=== PATIENT | male | born 1965 | race Caucasian/White ===

== ENCOUNTER → 2024-12-24 11:09 | Outpatient (REF) | payer BC, SELFPAY ==
[2024-12-24 12:04] LABS: Hematocrit 34.8 % (39.0-52.0); Hemoglobin 11.8 g/dL (13.0-18.0); Mean Corp Hgb Conc. 33.9 g/dL (33.0-37.0); Mean Corpuscular Volume 87.2 fL (80.0-94.0); Nucleated Red Blood Cells % 0 % (-); Platelet Count 437 10^3/uL (130-400); Red Cell Dist. Width 12.8 % (11.5-14.5)
[2024-12-24 12:15] LABS: Blood Urea Nitrogen 47 mg/dl (9-20); Calcium 9.9 mg/dl (8.4-10.2); Carbon Dioxide 28 mmol/L (22-30); Chloride 99 mmol/L (98-107); Glucose 133 mg/dl (70-99); Potassium 4.1 mmol/L (3.5-5.1); Sodium 134 mmol/L (135-145); eGFR > 60.00
== END ==
LOC: REG 11:09
PROVIDERS: ATTENDING PHYSICIAN Internal Medicine
DX: I25.10 Atherosclerotic heart disease of native coronary artery without angina pectoris (principal); K92.2 Gastrointestinal hemorrhage, unspecified
CPT/HCPCS: 36415; 80048; 85025

== ENCOUNTER → 2025-01-04 07:14 | Outpatient (REF) | payer BC, SELFPAY ==
--- NOTE | 2025-01-04 08:23 | CARDSERVLU ---
Echocardiogram with Lumason completed after protocol screening completed. Allergies verified.
Patent IV site: __22P new start first attempt___
IV site flushed with 0.9% NaCl pre and post administration.
Diluted bolus method utilized to enhance visualization of ventricular mejias.
Total volume given: __3.0__ mL
site dcd at completion of test.
Patient tolerated all procedures well without complications.
== END ==
LOC: RCS 07:14
PROVIDERS: ATTENDING PHYSICIAN Internal Medicine Cardiovascular Disease; FAMILY PHYSICIAN Internal Medicine
DX: I25.10 Atherosclerotic heart disease of native coronary artery without angina pectoris (principal); I25.5 Ischemic cardiomyopathy
CPT/HCPCS: 93306; Q9950

== ENCOUNTER → 2025-01-06 11:08 | Outpatient (REF) | payer BC, SELFPAY | LOC: HWRAD 11:08 | PROVIDERS: ATTENDING PHYSICIAN Thoracic Surgery (Cardiothoracic Vascular Surgery); FAMILY PHYSICIAN Internal Medicine | DX: Z01.810 Encounter for preprocedural cardiovascular examination (principal); I25.10 Atherosclerotic heart disease of native coronary artery without angina pectoris | CPT/HCPCS: 71250 ==

== ENCOUNTER 2025-01-08 20:30 | Emergency (ER) | payer BC, SELFPAY ==
[2025-01-08 20:34] VITALS: BP 127/93
--- NOTE | 2025-01-08 20:40 | ED.GENMED ---
History of Present Illness
General
Chief Complaint: Fever
Source: patient
Time Seen by Provider: 01/08/25 20:40
History of Present Illness
History of Present Illness:
59-year-old male presents emergency room complaining of fever, chills, rigors, right sided flank pain. Patient also has noticed that he is having some urgency to urinate and cloudy urine. Patient was recently hospitalized in [place] after having
a 'heart attack'. He had a stent placed. He was discharged and has since followed up here with Dr. Carr. He is scheduled for CABG on January 19. I found his preoperative history and physical in the medical record. This describes the patient's
issues at the [facility]. He had a inferior wall HI complicated by cardiac arrest, CPR. In addition to having a right coronary artery lesion that was stented he had LAD and circumflex disease. There was a plan for him to have CABG but
his preop DELGADO showed profound left ventricular dysfunction. The plan therefore was to hold off on surgery to allow for some cardiac recovery. He was discharged in is now receiving care here at [place]. Patient states he did have a Mitchell
catheter while he was hospitalized at [facility].
Past History
Past History
ED Past Medical History: Other (Kidney stones)
ED Past Surgical History: None
Social History
Tobacco: Non-smoker
Alcohol: Occasional
Drug: None
Personal:
Living: with family
Phy Exam
Physical Exam
Physical Exam:
General: Awake, Alert, Oriented X3. No acute distress.
Vitals: unremarkable
Head: Atraumatic
Eyes: Pupils equal, EOMI
Throat: Airway intact, no exudates
Neck: Trachea midline
Lungs: Clear and equal b/l
Heart: Regular rate, no murmurs
Abd: Soft, Nontender, No pulsatile mass
Back: No CVA tenderness to percussion
Neuro: Nonfocal
Skin: Warm, dry, no rash
Extremities: pulses equal b/l, no edema
Course
Orders/Labs/Results
Orders:
Orders
01/08/25 20:55
Basic Metabolic Panel Urgent
COVID-19 Antigen Urgent
Source: Nasal Swab
Complete Blood Count/With Diff Urgent
Influenza A+B Rapid Molecular Urgent
SOL Source: Nasal Swab
Specimen Description:
01/08/25 21:04
Acetaminophen [Tylenol] 650 mg PO NOW STA
01/08/25 22:18
Urinalysis Reflex To Culture Urgent
Date Specimen was Collected: 01/08/25
Time Specimen was Collected: 21:36
Urine Microscopic Reflex Cult Urgent
01/08/25 22:34
CR Chest - 2 Views Urgent
Comment:
Reason For Exam: fever, back pain
01/08/25 22:52
Blood Culture Q30M
SOL Source: Blood/Venous
Specimen Description:
Blood Culture Q30M
SOL Source: Blood/Venous
Specimen Description:
Abnormal Lab Results
01/08/25 01/08/25
20:55 22:18
WBC 3.6 L 10^3/uL
(4.8-10.8)
RBC 3.65 L 10^6/uL
(4.70-6.10)
Hgb 9.7 L g/dL
(13.0-18.0)
Hct 31.2 L %
(39.0-52.0)
MCH 26.6 L pg
(27.0-31.0)
MCHC 31.1 L g/dL
(33.0-37.0)
Absolute Lymphs (auto) 0.3 L 10^3/uL
(1.2-3.4)
Neutrophils % 86.1 H %
(42.2-75.2)
Lymphocytes % 7.6 L %
(20.5-51.1)
Sodium 133 L mmol/L
(135-145)
Glucose 103 H mg/dl
(70-99)
Urine Albumin (Reflex) 1+ A
(Neg - Trace)
01/08/25 20:55
01/08/25 20:55
Vital Signs
Initial and Last Documented VS:
Initial Vital Signs
Temp Pulse Resp BP Pulse Ox
100.1 F 126 20 127/93 97
01/08/25 20:34 01/08/25 20:34 01/08/25 20:34 01/08/25 20:34 01/08/25 20:34
Last Documented Vital Signs
Temp Pulse Resp BP Pulse Ox
100.1 F 104 16 107/67 98
01/08/25 22:50 01/08/25 22:49 01/08/25 22:49 01/08/25 22:00 01/08/25 22:49
MDM/Problems Addressed
Differential Diagnosis Includes:
UTI, pyelonephritis, pneumonia, viral illness such as COVID or flu
MDM/Problems Addressed:
Patient presents with fever. Right fevers and chills at home. Vital signs are normal here other than the fever. Temperature broke with Tylenol. Urinalysis is not consistent with a urinary tract infection. COVID and flu are negative.
Chemistries are normal essentially. White count is 3.6. Blood cultures and urine culture sent. Patient feels much better at this point. Will discharge and contact him if his cultures grow anything. Patient encouraged to return if he feels he is
getting worse.
*Pulse Oximetry
SaO2: 97
Oxygen Mode of Delivery: Room air
Patient hypoxic: no
*Critical Care Note
Total Time (30-74mins, 75-104mins- exclusive of procedures): Not Applicable
ED Attending Note
-
Portions of this chart may have been created with voice recognition software.� Occasional wrong word or��sound alike� substitutions may have occurred due to the inherent limitations of voice recognition software.
Discharge Plan
Departure
Patient Disposition: Home (Routine Discharge)
Date of Disposition: 01/08/25
Time of Disposition: 22:57
Patient with high blood pressure during this ER visit?: No
Condition: Good
Discharge Problem:
Fever
Instructions: Fever, Adult (DC)
Prescriptions:
No Action
atorvastatin 80 mg Tablet
80 mg PO HS
spironolactone 25 mg Tablet
25 mg PO DAILY
pantoprazole 40 mg Tablet,Delayed Release (Dr/Ec)
40 mg PO BID
aspirin 81 mg Tablet
81 mg PO DAILY
ticagrelor 90 mg Tablet
90 mg PO Q12H
Referrals:
Mathew Basilio MD [Family Provider, Internal Medicine]
Activity Restrictions/Additional Instructions:
We will contact you if any of your cultures turn positive. Return if you feel like you are getting worse. He can take Tylenol every 6 hours for fever.
Interventions
Interventions:
*Risk Screen - Suicide Last Done: 01/08/25 21:02
*General Assessment Last Done: 01/08/25 20:34
*Neglect/Abuse Screening Last Done: 01/08/25 21:02
*ED- Fall Risk Assessment Last Done: 01/08/25 21:02
*ED COVID-19 Vaccine History Last Done: 01/08/25 21:02
*ED Influenza Vaccine History Last Done: 01/08/25 21:02
Discharge Date and Time
Print Language: TRISTANIAN
[2025-01-08 21:02] VITALS: BMI 28.8
[2025-01-08 21:04] VITALS: BP 111/71
[2025-01-08 21:12] LABS: Hematocrit 31.2 % (39.0-52.0); Hemoglobin 9.7 g/dL (13.0-18.0); Mean Corp Hgb Conc. 31.1 g/dL (33.0-37.0); Mean Corpuscular Volume 85.5 fL (80.0-94.0); Nucleated Red Blood Cells % 0 % (-); Platelet Count 181 10^3/uL (130-400); Red Cell Dist. Width 13.5 % (11.5-14.5)
[2025-01-08] MEDS: TYLENOL 650 MG PO (21:14)
[2025-01-08 21:25] LABS: COVID-19 Antigen Negative (Negative)
[2025-01-08 21:34] LABS: Blood Urea Nitrogen 15 mg/dl (9-20); Calcium 8.8 mg/dl (8.4-10.2); Carbon Dioxide 23 mmol/L (22-30); Chloride 101 mmol/L (98-107); Estimated Creatinine Clearance 73 ml/min; Glucose 103 mg/dl (70-99); Potassium 3.8 mmol/L (3.5-5.1); Sodium 133 mmol/L (135-145); eGFR > 60.00
[2025-01-08 22:00] VITALS: BP 107/67
[2025-01-08 22:24] LABS: Urine Character Clear (Clear)
[2025-01-08 22:35] LABS: Urine Red Blood Cell 0-2 /HPF (0-2); Urine Squamous Cell None seen /LPF (Few); Urine White Cell None Seen /HPF (0-5)
== END 2025-01-08 23:41 | disposition home or self-care (01) ==
LOC: EMR 20:30
PROVIDERS: EMERGENCY PHYSICIAN Emergency Medicine; FAMILY PHYSICIAN Internal Medicine
DX: R50.9 Fever, unspecified (principal); R10.A1 Flank pain, right side; R39.15 Urgency of urination; I25.2 Old myocardial infarction; Z86.74 Personal history of sudden cardiac arrest; Z87.442 Personal history of urinary calculi; I25.10 Atherosclerotic heart disease of native coronary artery without angina pectoris; Z95.5 Presence of coronary angioplasty implant and graft; Z11.52 Encounter for screening for COVID-19
CPT/HCPCS: 99284; 71046; 80048; 81003; 81015; 85025; 87040; 87502; 87811

== ENCOUNTER 2025-01-12 06:21 | Day surgery (SDC) | payer BC, SELFPAY ==
[2025-01-12] VITALS (14 sets, daily range): BP systolic 90–125; BP diastolic 58–78; BMI 28.5
[2025-01-12] MEDS: LOW STRENGTH ASPIRIN 324 MG PO (07:06)
[2025-01-12] MEDS: NSS 240 ML IV (07:09)
[2025-01-12] MEDS: NSS 1000 IV (09:33)
[2025-01-12] MEDS: BRILINTA 90 MG PO (09:40)
--- NOTE | 2025-01-12 16:11 | ITS.CL.CATH ---
[employer] - Catheterization
Cardiac Catheterization
Procedure Report:
LEFT AND RIGHT HEART CATHETERIZATION
Date of Procedure: January 12, 2025
Referring: Gino Childs
PROCEDURES:
1. Left heart catheterization, coronary angiogram.
2. Moderate sedation.
3. Right heart catheterization.
INDICATION: Pre-CABG
ACCESS: Right radial artery, 6Fr. sheath, under US guidance.
Right common femoral vein, 6Fr sheath, under US guidance using micropuncture kit.
HEMODYNAMICS : (mmHg)
RA (m) : 9
RV (s/d,m) : 35/5, 13
PA (s/d, m) : 33/14, 23
PCWP (m) : 17 with v waves to 25mmHG
PA saturation: 62.3% on room air
AO saturation: 96.5% on room air
RA saturation: 56.6% on room air
Cardiac Output : 5.87 L/min
Cardiac Index : 3.09 L/min/m-2
Systemic vascular resistance: 1104 dsc^(-5)
Pulmonary vascular resistance: 1.02 salazar unit
AO (s/d) : 107/64
LVEDP : 15
No significant gradient across the aortic valve to suggest aortic stenosis.
CORONARY FINDINGS
Dominance: Right
Left Main Trunk (LMT): Medium caliber vessel that gives rise to the left major descending artery and a left circumflex artery. There is significant ventricularization and pressure dampening upon selective engagement with a 6 Urdu JL 4 diagnostic
catheter. Ostial left main has a 60 to 70% stenosis.
Left Anterior Descending Artery (LAD): Medium caliber vessel that gives off 1 major diagonal branches as it courses along the anterior inter-ventricular groove before wrapping around the cardiac apex. Proximal LAD has a long area of 70 to 80%
stenosis at the level of the takeoff of a diagonal branch. D1 is a medium caliber vessel that has 50 to 60% proximal stenosis and eccentric 60 to 70% mid stenosis
Left Circumflex Artery (LCx): Large caliber vessel that gives off 1 major obtuse marginal (OM) branches as it courses along the atrio-ventricular (AV) groove. Proximal portion of the lower branch of OM1 which is a larger branch has a 75% stenosis.
Right Coronary Artery (RCA): RCA has an anomalous takeoff from the left coronary cusp which is very high in the anterior and was very challenging to selectively engage. After feeling with a diagnostic JR4, 3 DRBita, MPA, the closest we got is with a 6
Urdu AL-1 diagnostic catheter but still not able to selectively engage despite multiple attempts and trying multiple angles. On nonselective shots there appears to be eccentric 50 to 60% ostial to proximal stenosis. Distal RCA stent is widely
patent. RPL system has small caliber vessels with ostial 70% stenosis. RPDA is medium caliber and has 50 to 60% ostial to proximal stenosis
SEDATION: 67 minutes of procedural sedation was utilized. IV Midazolam and IV Fentanyl were administered. An independent hospital medical biller was present to assist with and help manage the patient's level of consciousness and physiologic status.
RADIATION SUMMARY: Fluoro Time (min): 31.5, Dose (mGy): 813.9, DAP (Gy.cm2) : 54.55
Closure Device: There were no immediate intra-procedural complications. The sheath was pulled in the labor relations manager and a vascular-band applied to the right wrist for radial artery hemostasis using the patent hemostasis technique.
CONCLUSIONS
1. Significant multivessel coronary artery disease.
2. LVEDP 15 mmHg
3. Mildly elevated right and left-sided filling pressures with normal cardiac output.
RECOMMENDATIONS
1. Wean radial band per protocol. Monitor right hand perfusion and for bleeding from the radial site following removal of the vascular-band following trans-radial access.
2. Continue aggressive medical therapy and risk factor modification for secondary CAD prevention.
3. Hydrate with normal saline to mitigate the risk of contrast-induced acute kidney injury.
4. Proceed with planned coronary artery bypass grafting with CT surgery.
Copy to: Mallory Rojo and Jose Carr MD
Miladys Silva MD, FAC, [facility]
== END 2025-01-12 12:46 | disposition home or self-care (01) ==
LOC: CATH 06:21
PROVIDERS: ATTENDING PHYSICIAN Internal Medicine Interventional Cardiology; FAMILY PHYSICIAN Internal Medicine; OTHER PHYSICIAN Internal Medicine Cardiovascular Disease
DX: I25.10 Atherosclerotic heart disease of native coronary artery without angina pectoris (principal); I34.0 Nonrheumatic mitral (valve) insufficiency; I25.5 Ischemic cardiomyopathy; I25.2 Old myocardial infarction; Z79.82 Long term (current) use of aspirin; Z79.899 Other long term (current) drug therapy; Z95.5 Presence of coronary angioplasty implant and graft; Z72.0 Tobacco use
CPT/HCPCS: 99152; 99153; 93460; C1769; C1894; Q9967

== ENCOUNTER 2025-01-14 07:10 | Day surgery (SDC) | payer BC, SELFPAY ==
[2025-01-14 08:08] VITALS: BMI 29.1
== END 2025-01-14 09:59 | disposition home or self-care (01) ==
LOC: CATH 07:10
PROVIDERS: ATTENDING PHYSICIAN Internal Medicine Cardiovascular Disease; FAMILY PHYSICIAN Internal Medicine; OTHER PHYSICIAN Internal Medicine Cardiovascular Disease
DX: I08.0 Rheumatic disorders of both mitral and aortic valves (principal); I25.2 Old myocardial infarction; Z79.82 Long term (current) use of aspirin; Z79.02 Long term (current) use of antithrombotics/antiplatelets; Z79.899 Other long term (current) drug therapy; I25.5 Ischemic cardiomyopathy; Z95.5 Presence of coronary angioplasty implant and graft
CPT/HCPCS: 93312; 93320; 93325

== ENCOUNTER 2025-01-19 05:17 | Inpatient (IN) | payer BC, SELFPAY ==
[2025-01-10 12:59] VITALS: BMI 28.2
[2025-01-10 13:41] LABS: Hematocrit 33.4 % (39.0-52.0); Hemoglobin 10.8 g/dL (13.0-18.0); Mean Corp Hgb Conc. 32.3 g/dL (33.0-37.0); Mean Corpuscular Volume 83.5 fL (80.0-94.0); Nucleated Red Blood Cells % 0 % (-); Platelet Count 183 10^3/uL (130-400); Red Cell Dist. Width 13.5 % (11.5-14.5)
[2025-01-10 13:57] LABS: INR 0.98; PT 13.3 Sec (11.4-14.6)
--- NOTE | 2025-01-10 14:21 | CM ---
Met with and Mrs. Savage in [facility]'s. He states prior to admission he resides with his spouse in a two story home with one step to enter. He states he has fifteen steps to get to bedroom/full bathroom. He states he has a powder room on the
first floor. He states prior to admission he was independent with ambulation and adls. He states he does not have any DME in the home. He states he has a prescription plan. His spouse states she will be home to assist in his care if needed. The
discharge plan is to return home with his spouse and a home visit by the Transitional Care Nurse when medically stable.
We reviewed pre-op and post-op routines. We reviewed the shower instructions. He has the soap, written instructions and the Cardiothoracic Surgery Educational Booklet. We also reviewed restrictions including sternal precautions and driving
restrictions. We also reviewed a home visit by the Transitional Care Nurse. He is agreeable to a home visit. The plan is for CABG and MVR on Friday, January 19, 2025.
[2025-01-10 14:28] LABS: ALT (SGPT) 55 U/L (0-50); AST (SGOT) 45 U/L (17-59); Albumin 4.7 g/dl (3.5-5.0); Alkaline Phosphatase 75 U/L (38-126); Blood Urea Nitrogen 14 mg/dl (9-20); Calcium 9.5 mg/dl (8.4-10.2); Carbon Dioxide 28 mmol/L (22-30); Chloride 100 mmol/L (98-107); Estimated Creatinine Clearance 73 ml/min; Glucose 116 mg/dl (70-99); Potassium 3.6 mmol/L (3.5-5.1); Sodium 138 mmol/L (135-145); Total Protein 7.6 g/dl (6.3-8.2); eGFR > 60.00
[2025-01-10 14:31] LABS: Glycohemoglobin (HgbA1c) 4.8 % (4.0-5.9)
[2025-01-10 14:35] LABS: Urine Character Slightly Cloudy (Clear)
[2025-01-10 14:51] LABS: Urine Squamous Cell 0-2 /LPF (Few)
[2025-01-10 14:52] LABS: Urine Red Blood Cell 0-2 /HPF (0-2); Urine White Cell 0-2 /HPF (0-5)
[2025-01-19] VITALS (15 sets, daily range): BP systolic 75–116; BP diastolic 45–79; BMI 27.9
[2025-01-19] MEDS: PROTONIX 40 MG PO (05:36)
[2025-01-19] MEDS: MAGNESIUM OXIDE 400 MG PO (05:36)
[2025-01-19] MEDS: BACTROBAN 2% OINTMENT 1 APPLIC NASAL ×2 (05:36→19:37)
[2025-01-19] MEDS: LOPRESSOR 25 MG PO (05:36)
--- NOTE | 2025-01-19 06:00 | PTCARENOTE ---
pt admitted into room 2261. VS and weight obtained. pt confirms 2 showers @ home and NPO since midnight. admission questions and med rec completed. ABO drawn and sent. clip prep and CHG cloth bath done. pre-op meds given. at bedside. awaiting
transport to [facility].
--- NOTE | 2025-01-19 06:03 | W.[facility].SURPR ---
[facility] Surgeon Immed Pre Op
-
I have examined this patient prior to performance of the scheduled procedure.
The patient's condition is unchanged from the time of the dictated/written History and
Physical and the patient is able to undergo the scheduled procedure.
CABG post STEMI PCI (recovered), MV repair, LAAE
[2025-01-19 07:24] LABS: ACT+ - POC 115 Seconds (82-134)
[2025-01-19 07:36] LABS: Urine Character Clear (Clear)
[2025-01-19 07:44] LABS: Urine Red Blood Cell 0-2 /HPF (0-2); Urine Squamous Cell 0-2 /LPF (Few); Urine White Cell 0-2 /HPF (0-5)
[2025-01-19 09:05] LABS: B.E. - POC -0.3 mmol/L; Glucose - POC 123 mg/dl (70-99); HCO3 - POC 24 mmol/L (21-28); Hematocrit - POC 27 % PCV (42-52); Hemodilution- POC No; Hemoglobin Calculated - POC 9.3; Ionized Calcium - POC 1.26 mmol/L (1.15-1.33); Lactate - POC 0.61 mmol/L (0.36-0.75); O2 Saturation %Calculated-POC 99.9 % (94-98); PCO2 - POC 38 mmHg (35-48); PO2 - POC 274 mmHg (83-108); POC Comment PRE; Potassium - POC 3.9 mmol/L (3.5-5.1); Sodium - POC 135 mmol/L (136-145); Specimen Type - POC Arterial; pH - POC 7.41 (7.35-7.45)
[2025-01-19 09:21] LABS: ACT+ - POC 817 Seconds (82-134)
[2025-01-19 09:32] LABS: B.E. - POC 2.8 mmol/L; Glucose - POC 186 mg/dl (70-99); HCO3 - POC 26 mmol/L (21-28); Hematocrit - POC 27 % PCV (42-52); Hemodilution- POC Yes; Hemoglobin Calculated - POC 9.0; Ionized Calcium - POC 0.99 mmol/L (1.15-1.33); Lactate - POC 0.92 mmol/L (0.36-0.75); O2 Saturation %Calculated-POC 100.0 % (94-98); PCO2 - POC 32 mmHg (35-48); PO2 - POC 566 mmHg (83-108); POC Comment CPB; Potassium - POC 5.8 mmol/L (3.5-5.1); Sodium - POC 135 mmol/L (136-145); Specimen Type - POC Arterial; pH - POC 7.51 (7.35-7.45)
[2025-01-19 09:42] LABS: ACT+ - POC 559 Seconds (82-134)
[2025-01-19 10:13] LABS: B.E. - POC 2.8 mmol/L; Glucose - POC 175 mg/dl (70-99); HCO3 - POC 27 mmol/L (21-28); Hematocrit - POC 26 % PCV (42-52); Hemodilution- POC Yes; Hemoglobin Calculated - POC 9.0; Ionized Calcium - POC 1.07 mmol/L (1.15-1.33); Lactate - POC 1.09 mmol/L (0.36-0.75); O2 Saturation %Calculated-POC 99.9 % (94-98); PCO2 - POC 41 mmHg (35-48); PO2 - POC 246 mmHg (83-108); POC Comment CPB; Potassium - POC 6.5 mmol/L (3.5-5.1); Sodium - POC 135 mmol/L (136-145); Specimen Type - POC Arterial; pH - POC 7.43 (7.35-7.45)
[2025-01-19 10:25] LABS: ACT+ - POC 608 Seconds (82-134)
[2025-01-19 10:48] LABS: B.E. - POC 0.8 mmol/L; Glucose - POC 142 mg/dl (70-99); HCO3 - POC 25 mmol/L (21-28); Hematocrit - POC 27 % PCV (42-52); Hemodilution- POC Yes; Hemoglobin Calculated - POC 9.0; Ionized Calcium - POC 1.12 mmol/L (1.15-1.33); Lactate - POC 2.42 mmol/L (0.36-0.75); O2 Saturation %Calculated-POC 99.8 % (94-98); PCO2 - POC 40 mmHg (35-48); PO2 - POC 227 mmHg (83-108); POC Comment CPB; Potassium - POC 5.3 mmol/L (3.5-5.1); Sodium - POC 139 mmol/L (136-145); Specimen Type - POC Arterial; pH - POC 7.42 (7.35-7.45)
[2025-01-19 10:57] LABS: ACT+ - POC 495 Seconds (82-134)
[2025-01-19 11:32] LABS: B.E. - POC 0.6 mmol/L; Glucose - POC 119 mg/dl (70-99); HCO3 - POC 25 mmol/L (21-28); Hematocrit - POC 24 % PCV (42-52); Hemodilution- POC Yes; Hemoglobin Calculated - POC 8.0; Ionized Calcium - POC 1.06 mmol/L (1.15-1.33); Lactate - POC 2.88 mmol/L (0.36-0.75); O2 Saturation %Calculated-POC 99.9 % (94-98); PCO2 - POC 38 mmHg (35-48); PO2 - POC 311 mmHg (83-108); POC Comment WARM; Potassium - POC 5.2 mmol/L (3.5-5.1); Sodium - POC 140 mmol/L (136-145); Specimen Type - POC Arterial; pH - POC 7.43 (7.35-7.45)
[2025-01-19] MEDS: AZACTAM 2000 MG IV ×2 (11:33)
[2025-01-19 11:35] LABS: ACT+ - POC 115 Seconds (82-134)
[2025-01-19 11:39] LABS: B.E. - POC -1.3 mmol/L; Glucose - POC 142 mg/dl (70-99); HCO3 - POC 24 mmol/L (21-28); Hematocrit - POC 22 % PCV (42-52); Hemodilution- POC Yes; Hemoglobin Calculated - POC 7.3; Ionized Calcium - POC 1.35 mmol/L (1.15-1.33); Lactate - POC 2.62 mmol/L (0.36-0.75); O2 Saturation %Calculated-POC 99.7 % (94-98); PCO2 - POC 42 mmHg (35-48); PO2 - POC 203 mmHg (83-108); POC Comment POST; Potassium - POC 4.3 mmol/L (3.5-5.1); Sodium - POC 135 mmol/L (136-145); Specimen Type - POC Arterial; pH - POC 7.37 (7.35-7.45)
[2025-01-19 11:48] LABS: B.E. - POC -3.0 mmol/L; Glucose - POC 134 mg/dl (70-99); HCO3 - POC 22 mmol/L (21-28); Hematocrit - POC 22 % PCV (42-52); Hemodilution- POC Yes; Hemoglobin Calculated - POC 7.4; Ionized Calcium - POC 1.30 mmol/L (1.15-1.33); Lactate - POC 2.47 mmol/L (0.36-0.75); O2 Saturation %Calculated-POC 99.8 % (94-98); PCO2 - POC 40 mmHg (35-48); PO2 - POC 230 mmHg (83-108); POC Comment POST; Potassium - POC 4.3 mmol/L (3.5-5.1); Sodium - POC 139 mmol/L (136-145); Specimen Type - POC Arterial; pH - POC 7.36 (7.35-7.45)
--- NOTE | 2025-01-19 11:50 | W.PN.CT.SURG ---
CT Surgery Operative Note
-
CARDIAC SURGERY OPERATIVE REPORT
Preoperative Diagnosis: Ischemic cardiomyopathy, multivessel coronary artery disease, recent STEMI, anomalous right coronary artery
Postoperative Diagnosis: Same
Procedure(s) Performed:
1. Standard sternotomy with aortic and bicaval cannulation
2. Left internal mammary artery harvesting
3. CABG x 5 (HOLM-LAD, [id number]-UQ, ALGD-[id number])
4. Mitral valve repair [30 mm band annuloplasty]
5. Left atrial appendage exclusion [35 mm device]
6. Placement of temporary atrial ventricular pacing wires
7. Right lower extremity Endo vein harvest
8. Transesophageal echocardiography
Date of Surgery: 01/19/25
Comorbidities:
1. Recent STEMI with cardiovascular collapse
2. 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
3. Hydronephrosis
4. Hyperlipidemia
5. Hypertension
6. Gout
7. Acute on chronic ischemic cardiomyopathy with EF of approximately 40% and new functional mitral valve insufficiency
8. Severe pulmonary hypertension, PAPS of 80
9. Functional mitral valve sufficiency, type IIIb
Attending Surgeon: Jose Carr MD, MS
Assistants: Alejandro Kelley PA-C (present and necessary to licensed investment sales assistant, retraction, suction, exposure, suture management, and wound closure under my direction), Destinee Ferraro PA-C (endo vein harvest), Karis Rodriguez MD (PGY2 - sternotomy and closure)
Anesthesiology: Maycol Olsen MD and Tamara Blake CRNA
Scrub and Circulating RNs: Ericka Monsivais, RN, Unique Macias, JASON
Water Well Driller: Tate Lopez CCP
Anesthesia: GETA
EBL: per perfusion records
Products: None
CPB Time: 143 minutes
Aortic Cross Clamp Time: 120 minutes
Indication(s) for Procedures: This is a 59-year-old male who suffered a STEMI in [place] and underwent emergency stenting to the mid RCA. He was found to have multivessel coronary artery disease and was initially booked for surgery there and he
was discovered to have severe mitral valve insufficiency. He was actually on the operating room table and the procedure was aborted given this new finding. He has since recovered somewhat from that and sought out a second surgical opinion as he
lives up here in [place]. On my evaluation I felt that he needed to have coronary revascularization and the mitral valve was then reinterrogated under DELGADO and found to be severe and so the plan was to perform a CABG as well as mitral valve
repair.
Mitral Valve Description: Tethered at P2 and P3, not significantly dilated annulus, functional and pathology.
Findings: His left ventricular ejection fraction preoperatively was approximately 45% he had at least severe mitral valve insufficiency that was worse when his PA pressures everett. At 1 point in the case there was a significant change where his PA
pressures went from 40s up to 80 nearly systemic which I suspect was secondary to some ischemia from compression of the RCA. After surgery his EF was 55% with no significant regional wall motion abnormalities and the mitral valve was repaired using
a band annuloplasty. He had CABG x 5 with the HOLM was skeletonized and grafted to the distal LAD. A vein graft was then sequenced from the diagonal vessel which covered the significant territory the lateral wall and to his only significant OM
vessel. I was able to identify an RPDA as well as and a large RPL branch and so sequence was performed here to cover the right side. The mitral valve was repaired using a simple band annuloplasty from trigone to trigone using a total of 11
nonpledgeted 2 Ethibond sutures securing a [address] with core knots. Given that his left atrium was not dilated and his heart was rotated rightward it was quite difficult to visualize the anterior leaflet of mitral valve and so full
ring was not placed. He had a mild degree of aortic valve deficiency starting the case which was the same postoperatively. At the conclusion, his mitral valve insufficiency went from torrential to mild at best. His PA pressures also normalized to
the 30s and 40s at the conclusion of the case he did not require any significant pacing and regained his sinus rhythm. No blood products were given, the mean gradient across the mitral valve was 2 mmHg, there is no systolic anterior motion of the
leaflets, and he was on 3 of dobutamine and off and on of Levophed. His left atrial appendage was also verified be free of any thrombus or debris preoperatively and found to be totally occlusive postoperatively with a 35mm clip. Test dosing of
antegrade cardioplegia down the grafts yielded excellent flows at a pressure of 80 mmHg. Flow probe was used to assess the grafts and the HOLM flow was a mean of 17 cc a minute with a pulsatility index of 3.8, the vein graft leading to the
sequential diagonal and OM had a flow of 35 cc a minute with a pulsatility index of 3.5 from the vein graft leading to the right side targets had a mean flow 46 cc a minute with a PI of 3.8.
Specimen(s): None.
Prosthesis: 35 mm left atrial appendage clip, serial #[id number], 30 mm Greenfield physio flex annuloplasty band, serial #[id number].
Description of Procedure: The patient was taken to the operating room. Their identity and procedure to be performed were verified and they were positioned supine on the operating table. Induction via general anesthesia with endotracheal intubation
was performed and central venous access and arterial monitoring were inserted. A preoperative transesophageal echocardiogram was performed to assess cardiac function and valvular function. The patient was then prepped and draped from chin to feet in
a sterile fashion. A preoperative time-out was performed with all members of the team present. A midline chest incision was performed along with median sternotomy. The innominate vein was isolated. Full heparinization was given (a total of 50,000
units). We created a pericardial well. The aortic cannulation site was chosen where it was soft, pliable, and free of calcium. Cannulation was performed with an arterial cannula in the ascending aorta, angled metal tip cannular in the superior vena
cava and straight bendable cannula in the inferior vena cava. The arterial cannula line had an appropriate bounce and correlating pressures. Next, a root vent/antegrade cannula was inserted into the ascending aorta. The ACT was confirmed to be over
400 and retrograde autologous priming was performed before commencing cardiopulmonary bypass. The pulmonary artery was away from the aorta to facilitate a clamp site. Sondergaard�s groove was developed after creating the oblique sinus. The
aortic cross-clamp was placed after decreasing the flow on the bypass and mean arterial pressure. A total of 1.2L initial dose of antegrade Del-Nido cardioplegia solution was given and planned for re-dosing every 60 minutes as necessary. There was
rapid electro-mechanical arrest of the heart at 290 cc of cardioplegia. The left ventricle was observed for distention on echocardiogram and manual palpation. Cold slush was placed into a lap on the RV and we systemically cooled to 34 degrees
centigrade.
I positioned the heart to expose the distal right coronary at the posterolateral branch and posterior descending artery. I first repaired the posterolateral branch and performed a small coronary arteriotomy and enlarged it with Moise scissors. The
vein graft was beveled here and end-to-side anastomosis formed with 7-0 Prolene in a running fashion. I then laid the vein graft across to accommodate a sequential to the RPDA. The RPDA was repaired in a similar fashion and a [id number]
anastomosis was created here with 7-0 Prolene. Test dose of antegrade cardioplegia was given down the graft sequentially first at the RPL B followed by the RPDA and found to have excellent flow. The graft was measured for length to the aorta and
cut. A suitable site on the obtuse marginal was chosen. We dissected and prepared the distal target in a similar fashion. An end-to-side anastomosis was created with a 7-0 prolene. Antegrade cardioplegia was administered into the graft. Appropriate
hemostasis and flow were confirmed. I then measured the graft noted to accommodate a sequential to a large diagonal system. The diagonal vessel was prepared in similar fashion and a [id number] anastomosis was created 7-0 Prolene. Again both the
sequence of the distal graft was tested with antegrade cardioplegia and fat to be hemostatic with excellent flows. The graft was measured for length to the aorta and cut. A suitable target on the mid/distal left anterior descending was identified.
We dissected and prepared the distal target in a similar fashion. We retrieved the HOLM from the chest and created a pericardial opening while being cognizant of the phrenic nerve to facilitate the course of the mammary. The distal end of the
mammary was prepped and beveled to size. We verified orientation and length of the LEXY and found brisk flow. An end-to-side anastomosis was created with a 7-0 prolene. We temporarily released the bulldog clamp on the mammary to inspect flow.
Perfusion to the LAD territory was visualized and hemostasis was confirmed. The bull clamp was replaced on the mammary. The left atrial Penders also clipped here at this point.
Carbon dioxide was used to flood the field. The mitral valve was access via the left atrium after developing the oblique sinus followed by valve analysis. The mitral valve was repaired as described above. Deairing maneuvers were performed while the
left atrium was closed with a 3-0 prolene in a single layer. The heart was filled and the root was distended with antegrade cardioplegia to make final assessment of graft length and orientation. We created 2 aortotomies using a #11 blade then a
3.6mm aortic punch. The proximal anastomoses were created in an end-to-side fashion using 6-0 prolene. At the the same time, we re-warmed to 36.5 degrees centigrade. The bulldog clamp was removed from the mammary.
Additional de-airing maneuvers were performed and temporary bipolar ventricular pacing wires were placed on the base of the right ventricle as well as temporary atrial pacing wires at the SVC right atrial junction. The patient was placed in a
Trendelenburg position and flows on bypass were lowered. The aortic cross clamp was removed and flows were slowly brought back up. The left atrial suture line and distals were hemostatic. Transesophageal echocardiography revealed no evidence of
systolic anterior motion and ventricular function was normal. Once de-airing was satisfactory the left ventricular and root vents were removed. After verifying acceptable parameters, we initiated weaning from cardiopulmonary bypass. Once we were off
cardiopulmonary bypass, the venous cannulas was clamped and removed sequentially. A test dose of protamine was administered and the patient was monitored for any adverse reaction before resuming protamine. Once half of the protamine dose was
delivered, pump suckers were turned off and the systolic blood pressure was lowered for aortic decannulation. The aortic cannula was removed and purse strings were tied down. All cannulation sites were oversewn with a 4-0 prolene. The left atrial
suture line and proximals were was inspected and hemostasis was confirmed. Mediastinal hemostasis was obtained. Two #24 Germán drains were placed within the pericardium and a single 19Fr germán into the left hemithorax. The sternum was approximated
with 4 #7 single and 3 #6 double stainless steel wires. Fascia was approximated with #1 vicryl suture. The subcutaneous, dermis and epidermis were closed in layers in a running fashion. The skin wound was cleansed and dressed.
All instrument, sponge, and needle counts were confirmed to be correct x 2 at the end of the operation. The patient was transferred to the cardiac intensive care unit in critical but stable condition.
I, Dr. Jose Carr, was present, scrubbed for, and performed all critical elements of this procedure.
Jose Carr MD, MS
Cardiothoracic Surgeon
[facility]
This dictation was created using the [employer] dictation system. Please excuse any grammatical, typographical, or 'sound alike' errors
[2025-01-19 12:37] LABS: Glucose - Point of Care 138 mg/dl (70-99)
[2025-01-19 12:38] LABS: ACT+ - POC > 1003 Seconds (82-134)
[2025-01-19 12:48] LABS: Hematocrit 24.6 % (39.0-52.0); Hemoglobin 7.7 g/dL (13.0-18.0); Platelet Count 255 10^3/uL (130-400)
[2025-01-19 12:54] LABS: B.E. 0.5 mmol/L; HCO3 24.6 mmol/L (21-28); O2 Saturation % 99.9 % (94-98); PCO2 37 mmHg (35-48); PO2 182 mmHg (83-108)
[2025-01-19 12:57] LABS: INR 1.36; PT 17.3 Sec (11.4-14.6)
[2025-01-19 12:58] LABS: APTT 31.0 Sec (23.4-35.0)
[2025-01-19 13:04] LABS: Potassium 4.7 mMOL/L (3.5-5.1); Sodium 137 mMOL/L (136-145)
[2025-01-19 13:11] LABS: Blood Urea Nitrogen 15 mg/dl (9-20); Estimated Creatinine Clearance 91 ml/min; Glucose 123 mg/dl (70-99); Magnesium 3.2 mg/dl (1.6-2.3)
[2025-01-19 13:12] LABS: Glucose - Point of Care 135 mg/dl (70-99)
--- NOTE | 2025-01-19 13:15 | PTCARENOTE ---
Pt arrived to CVICU at 1230. Pt is intubated and sedated. Pt currently SR with HR 79. BP 92/57 MAP 69, CVP 11, PA 26/15, CO 3.32, CI 1.77, SVR 1565. Temp 95.2, Rudy hugger in place. Epicardial AV wires in place. Pulse oximetry 100% on SIMV 40% FiO2,
rate 16, TV 500, PEEP 5, Pressure support 5. #[address] at 22cm at the right lip. Oral care completed. Mediastinal chest tubes x2 and left pleural chest tube in place to -20 suction, no sign of air leak or crepitus, drainage red in color.
Bowel sounds hypoactive. Mitchell catheter in place draining clear yellow urine. Mitchell care completed. Midsternal incision approximated with surgical adhesive. Left leg with jose maria wrap in place. Left groin puncture approximated. Right IJ swan at 44cm,
cordis intact. Left radial Rima intact. Pt remains on Levo, Dobutamine, Precedex, and Insulin. Post-op EKG and x-ray obtained. Labs collected and reviewed. Pt currently receiving 1 unit PRBC per order.
[2025-01-19] MEDS: CARDENE 200 IV (13:30)
[2025-01-19] MEDS: NSS 500 IV (13:31)
[2025-01-19] MEDS: NEURONTIN PO ×2 (13:32→15:19)
[2025-01-19] MEDS: VANCOCIN 200 IV ×2 (13:33→23:53)
[2025-01-19] MEDS: TYLENOL PO (13:51)
--- NOTE | 2025-01-19 14:05 | CON.INTV ---
Consultation
Consultation Request
Date/Time Consultation Requested: 01/19/2025
Date/Time Consultation Performed: 01/19/2025
Medical History
-
Chief Complaint: CAD
History of Present Illness:
Patient is a 51-year-old gentleman who was hospitalized at [facility] in 12/[address] VA. Patient had a PCI performed and was referred to Dr. Carr for evaluation for coronary artery bypass graft. Patient reportedly
developed ventricular fibrillation and asystole required during CPR followed by ROSC was achieved. He also required temporary pacing which was subsequently removed in addition to requiring Impella support. Patient also noted to have severe mitral
valve regurgitation. Patient was admitted to the hospital for elective coronary artery bypass graft and mitral valve repair. Postprocedure, patient was admitted to CVICU and stress consultation was requested for further input.
Past medical history. Nephrolithiasis, coronary artery disease, mitral valve regurgitation, hydronephrosis, inguinal hernia, diverticulosis.
Surgical history. PCI in 12/2024.
Family history. History of coronary artery disease in the family, no reported history of lung cancer.
Social history. Remote history of smoking, lately has been using cigar also chewing tobacco. 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
Allergies / Home Medications
Allergies
Allergy/AdvReac Type Severity Reaction Status Date / Time
Penicillins Allergy Anaphylaxis Verified 01/14/25 08:09
Home Medications
�Medication �Instructions �Recorded �Confirmed �Last Taken �Type
atorvastatin 80 mg tablet 80 mg PO HS High Cholesterol 01/05/25 01/19/25 01/18/25 18:00 History
pantoprazole 40 mg tablet,delayed 40 mg PO BID Gastrointestinal Issue 01/05/25 01/19/25 01/18/25 18:00 History
release
spironolactone 25 mg tablet 25 mg PO DAILY Fluid 01/05/25 01/19/25 01/18/25 18:00 History
Retention/Swelling
ticagrelor 90 mg tablet 90 mg PO Q12H Blood Clot 01/05/25 01/19/25 01/18/25 18:00 History
Held on 01/12/25. Prevention/Tx
Instructions: Resume on
01/19/25. Hold until after
surgery
aspirin 81 mg tablet,delayed 81 mg PO DAILY Blood Clot 01/12/25 01/19/25 01/18/25 18:00 History
release Prevention/Tx
Review of Systems
-
Unable to Obtain full review of systems at this time due to: Patient Intubation
Vitals / Labs / Diagnostic Testing
Vital Signs
Temp Pulse Resp BP Pulse Ox
95.3 F L 78 16 103/74 100
01/19/25 13:00 01/19/25 13:15 01/19/25 13:15 01/19/25 05:25 01/19/25 13:15
Lab Data
01/19/25 12:25
Laboratory Results
01/19/25
12:25
PT 17.3 H
INR 1.36
APTT 31.0
pH 7.43
pCO2 37
pO2 182 H
HCO3 24.6
O2 Delivery Level Not Reportable
Diagnostic Testing:
Physical Exam
-
HEENT: Normocephalic
Respiratory: Clear and Non-Labored Respirations
GI: Soft and Non Distended
Neurology: Other (Currently sedated on mechanical ventilation)
Skin: Warm
General: Comfortable
Assessment
-
59-year-old gentleman with multivessel coronary artery disease s/p coronary artery bypass graft, mitral valve repair, left atrial appendage exclusion, POD # 0
Titrate off pressors per protocol, off Levophed, dobutamine infusing at 3. MAP of 64, Levophed being initiated. CVP 11.
ECHO reviewed with low EF.
PA catheter readings reviewed, .
Management of chest tubes per primary service
Intubated/sedated, initiate SAT when able, Precedex infusing currently
Pain control
RASS goal of 0 to -1
Intubated for procedure, SBT trial when patient able to spontaneously breath
Current vent settings: SIMV 500/16/40%/5, pressure support of 5, current respiratory rate 16.
AB.40 3/182
CXR with no obvious opacities/infiltrates, low lung volumes, ETT in good position, lines/tubes in place
Extubate per protocol
Maintain supplement oxygen as needed
No prior known history of pulmonary disease
Prior PFTs reviewed
Can add nebulizers if needed
Aspiration precautions
Encouraged incentive spirometry, OOB/ambulation/early mobility
Advance diet as tolerated following extubation
GI prophylaxis: Protonix
Monitor critical I/O's
Mitchell/chest tube output
Hb/platelets postoperatively, down to 7.7 hemoglobin, preop 10.8.
Trend CBC for now
Can transfuse if indicated for Hb <7, plt <50 in surgical patients
DVT prophylaxis including SCDs
Insulin protocol initiated and ongoing
Transition to SQ/off as indicated per team
Other medical diagnoses:
- H/o Alcoholism. In remission
- H/o chewing tobacco, cigar use
- Nephrolithiasis
- Inguinal hernia
- Diverticulosis
- Coronary artery disease, status post PCI 12/2024, CABG 01/2025
- STEMI 12/2024, s/p PCI, complicated vy VF/Asystole requiring CPR and temporary pacing
- Mitral regurgitation, moderate to severe. s/p repair 01/2025
Updated patient's and daughter at bedside
Critical Care time [58] mins -- The patient is admitted for acute critical illness for the treatment of vital organ failure and/or prevention of further life-threatening conditions. Total care includes time spent in review of history, physical exam,
medications, hemodynamic/ventilator parameters, laboratory data, imaging and discussion with house staff, pharmacy, respiratory therapy, engraver copperplate, and nursing
Data:
CXR 01/2025: Unremarkable
CT Chest 01/2025: Minimal linear left lower lobe opacities, consistent with partial atelectasis or scarring. Lungs otherwise clear.
Moderate coronary arterial calcifications.
DELGADO 01/2025: 1. Normal left ventricular size with mildly reduced left ventricular function. Mild hypokinesis of the mid to distal inferior and inferolateral wall.
2. Ejection fraction is 45-50% by visual assessment.
3. Right ventricular size and systolic function are within normal limits.
4. Mild aortic regurgitation.
5. Mildly thickened mitral valve leaflets with restricted posterior leaflet at P2. There is a central jet of moderate to severe mitral regurgitation. Peak E wave velocity 62 cm/s.
RHC 01/2025: Pulmonary capillary wedge pressure 17 with V wave to 25, cardiac index 3.09. Mean pulmonary artery pressure 23. PVR 1.02.
LHC 01/2025: Significant multivessel coronary artery disease
ECHO 01/2025: 1. Normal ventricular size with mild to moderately reduced LV systolic function with EF 42%.
2. LV Wall Motion: basal and mid inferior wall is abnormal, as described below.
3. Normal right ventricular size and function.
4. At least moderate mitral regurgitation.
5. Trace tricuspid regurgitation with estimated pulmonary artery pressure of 29 mmHg assuming a right atrial pressure of 3 mmHg.
6. No prior study for comparison.
[2025-01-19 14:06] LABS: Glucose - Point of Care 117 mg/dl (70-99)
[2025-01-19] MEDS: LR 250 ML IV ×3 (14:10→15:46)
--- NOTE | 2025-01-19 14:20 | CM ---
Chart reviewed. Patient is in the OR today. Patient is independent of ADLS, lives with his in a 2 STH, 1 SONJA, 0 DME. Plan is for the patient to return home with CT Transitional RN. CM to follow
[2025-01-19 15:04] LABS: Glucose - Point of Care 92 mg/dl (70-99)
[2025-01-19] MEDS: PACERONE PO (15:20)
[2025-01-19] MEDS: OFIRMEV 100 IV (15:38)
--- NOTE | 2025-01-19 16:03 | PTCARENOTE ---
Remains SR with HR 75. BP 95/53 MAP 67. PA 28/13, CVP 10, CO 4.66, CI 2.48, SVR 944. Pt currently remains on Levo at 4mcg/min, Dobut 3mcg/kg/min, and Insulin. Pt has received a total of 750mL LR. Pt awake, attempted CPAP trial at 1500 however
remained too tired at that time and was placed back to SIMV. Pt is more awake at this time, able to nod appropriately and move all extremities. Ofirmev administered for pain.
[2025-01-19 16:18] LABS: Glucose - Point of Care 149 mg/dl (70-99)
[2025-01-19 16:22] LABS: Hematocrit 27.5 % (39.0-52.0); Hemoglobin 8.7 g/dL (13.0-18.0); Platelet Count 291 10^3/uL (130-400)
[2025-01-19 16:47] LABS: B.E. - POC -0.9 mmol/L; Blood Urea Nitrogen - POC 15 mg/dl (3-120); Chloride - POC 108 mmol/L (96-111); Creatinine - POC 0.98 mg/dl (0.3-1.0); Glucose - POC 148 mg/dl (70-99); HCO3 - POC 25 mmol/L (21-28); Hematocrit - POC 28 % PCV (42-52); Hemodilution- POC Yes; Hemoglobin Calculated - POC 9.6; Ionized Calcium - POC 1.19 mmol/L (1.15-1.33); Lactate - POC 1.11 mmol/L (0.36-0.75); O2 Saturation %Calculated-POC 99.2 % (94-98); PCO2 - POC 43 mmHg (35-48); PO2 - POC 148 mmHg (83-108); Potassium - POC 4.7 mmol/L (3.5-5.1); Sodium - POC 141 mmol/L (136-145); Specimen Type - POC Arterial; pH - POC 7.37 (7.35-7.45)
--- NOTE | 2025-01-19 16:55 | PTCARENOTE ---
CPAP trial initiated. ABG collected, reviewed results with CT JANICE, Lupe. Pt extubated at 1645 to 6L nasal cannula. Pulse oximetry 100%.
--- NOTE | 2025-01-19 17:00 | RESPNOTE ---
pt extubated at 1645 to 6L nasal cannula,02 sats of 99% noted
[2025-01-19 17:18] LABS: Glucose - Point of Care 138 mg/dl (70-99)
--- NOTE | 2025-01-19 17:33 | W.PN.CARDCBS ---
Today's Communication / Plan
-
Postop care
Impression / Plan
-
Origination Specialist: Naz
Assessment:
MV CAD
Severe MR
CABG x5 01/19/25 (HOLM-LAD, KDTD-Hcic-OA, [id number]) with mitral valve repair [30 mm band annuloplasty] and LAAE
HTN
HLD
Plan:
-Postop day #0, seen in the CVICU where he was intubated and sedated
-Requiring dobutamine and Levophed for inotrope and pressor support
-Warm and well-perfused on physical exam
-Normal LVEF 55% based on IntraOp DELGADO
-Maintaining sinus rhythm on review of telemetry
-Elevated filling pressures based on invasive hemodynamics suspect that he will need diuresis to improve his volume status
-Agree with current cardiac meds�aspirin/Plavix, high intensity statin, beta-paola and amiodarone to maintain sinus rhythm
- We will continue to follow with you
Progress Note - Origination Specialist
Subjective
Date of Service: January 19, 2025
Underwent CABG and MV repair earlier today. Seen postop in the CVICU where he was intubated and sedated.
Objective
Labs:
01/19/25 16:15
01/19/25 12:25
Labs
Hgb 8.7 g/dL (13.0-18.0) L 01/19/25 16:15
Hct 27.5 % (39.0-52.0) L 01/19/25 16:15
Plt Count 291 10^3/uL (130-400) 01/19/25 16:15
PT 17.3 Sec (11.4-14.6) H 01/19/25 12:25
INR 1.36 01/19/25 12:25
APTT 31.0 Sec (23.4-35.0) 01/19/25 12:25
Sodium 138 mmol/L (135-145) 01/10/25 13:08
Potassium 3.6 mmol/L (3.5-5.1) 01/10/25 13:08
BUN 15 mg/dl (9-20) 01/19/25 12:25
Creatinine 0.8 mg/dL (0.7-1.3) 01/19/25 12:25
Glucose 123 mg/dl (70-99) H 01/19/25 12:25
Vital Signs and I&O:
Vital Signs
Temp Pulse Resp BP Pulse Ox
98.0 F 70 20 78/45 100
01/19/25 17:00 01/19/25 17:15 01/19/25 17:15 01/19/25 17:00 01/19/25 17:15
Vital Signs
Temp Pulse Resp BP Pulse Ox
98.0 F 70 20 78/45 100
01/19/25 17:00 01/19/25 17:15 01/19/25 17:15 01/19/25 17:00 01/19/25 17:15
Intake & Output
01/17/25 01/18/25 01/19/25 01/20/25
06:59 06:59 06:59 06:59
Intake Total 1303.2 / 1303.2
Output Total 1205 / 1205
Balance 98.2 / 98.2
Physical Exam
Physical Exam
Gen: NAD
HEENT: NC/AT, sclera anicteric
Neck: Right IJ [place] in place
CV: RRR, NL s1/s2, no M/R/G
Lungs: Mechanically ventilated. Chest tubes with sanguineous drainage.
Abd: S/ND
: Mitchell with aleksandra urine.
Ext: No LE edema
Skin: Warm, dry. Sternotomy CDI.
Neuro: Non-focal
[2025-01-19] MEDS: LOW STRENGTH ASPIRIN 81 MG PO (17:41)
[2025-01-19 19:12] LABS: Glucose - Point of Care 123 mg/dl (70-99)
[2025-01-19] MEDS: DILAUDID 0.5 MG IV ×2 (19:36→23:04)
--- NOTE | 2025-01-19 19:54 | PTCARENOTE ---
received pt from previous rn. Pt AAOx4, pt c/o incision pain. See MAR. NSR per tele monitor HR 70s. A/V wires set to a back up of DDD 30/10/10. +pulses. BP 100s/50s. PAP 30s/10s. CVP ~ 11. CI/CO - 2.62/4.92. pox 100% on 2L NC. lungs diminished
throughout. CTx3 set to -20cm wall suction. No air leaks/tidaling/ crepitus. IS 2000. hypoactive bs. Mitchell draining clear yellow urine. all surgical sites intact. RIJ cordis w/ swan floated to 44. L radial a-line intact. all lines leveled, zeroed,
and flushed. PIV infusing insulin per glycemic protocol. plan of care discussed and questions encouraged. call reza within reach. see worklist and flowsheets for full nursing assessment, VS, I&Os, and nursing interventions.
[2025-01-19 20:53] LABS: Glucose - Point of Care 124 mg/dl (70-99)
[2025-01-19] MEDS: PACERONE 200 MG PO (21:47)
[2025-01-19] MEDS: SENOKOT 8.6 MG PO (21:47)
[2025-01-19] MEDS: LIPITOR 80 MG PO (21:47)
[2025-01-19] MEDS: NEURONTIN 100 MG PO (21:48)
[2025-01-19] MEDS: TYLENOL 975 MG PO (21:48)
[2025-01-19] MEDS: FLEXERIL 5 MG PO (21:48)
[2025-01-19 22:55] LABS: Glucose - Point of Care 115 mg/dl (70-99)
[2025-01-20] VITALS (37 sets, daily range): BP systolic 80–111; BP diastolic 50–80; BMI 29.9
--- NOTE | 2025-01-20 00:01 | PTCARENOTE ---
pt reassessed. NSR per tele monitor HR 80s. pox 100% on 2L NC. no c/o pain at this time. assessment remains unchanged.
[2025-01-20] MEDS: ROXICODONE 5 MG PO ×3 (00:56→20:07)
[2025-01-20 01:01] LABS: Glucose - Point of Care 125 mg/dl (70-99)
[2025-01-20] MEDS: LEVOPHED 250 IV (01:07)
[2025-01-20 01:59] LABS: Glucose - Point of Care 104 mg/dl (70-99)
[2025-01-20 03:08] LABS: Glucose - Point of Care 89 mg/dl (70-99)
[2025-01-20 03:59] LABS: Glucose - Point of Care 109 mg/dl (70-99)
[2025-01-20] MEDS: DILAUDID 0.5 MG IV ×2 (04:07→11:55)
[2025-01-20 04:25] LABS: Hematocrit 30.0 % (39.0-52.0); Hemoglobin 10.0 g/dL (13.0-18.0); Mean Corp Hgb Conc. 33.3 g/dL (33.0-37.0); Mean Corpuscular Volume 82.0 fL (80.0-94.0); Platelet Count 283 10^3/uL (130-400); Red Cell Dist. Width 14.1 % (11.5-14.5)
--- NOTE | 2025-01-20 04:27 | PTCARENOTE ---
AM labs sent. 250 LR bolus given for low UO. NSR per tele monitor HR 70s. pox 99% on 1L NC. pt c/o incision pain. See MAY. assessment remains unchanged otherwise.
[2025-01-20 04:48] LABS: Blood Urea Nitrogen 17 mg/dl (9-20); Calcium 8.0 mg/dl (8.4-10.2); Carbon Dioxide 25 mmol/L (22-30); Chloride 106 mmol/L (98-107); Estimated Creatinine Clearance 81 ml/min; Glucose 98 mg/dl (70-99); Magnesium 2.3 mg/dl (1.6-2.3); Potassium 4.6 mmol/L (3.5-5.1); Sodium 132 mmol/L (135-145); eGFR > 60.00
[2025-01-20 05:06] LABS: Glucose - Point of Care 95 mg/dl (70-99)
[2025-01-20] MEDS: TYLENOL 975 MG PO ×3 (05:32→21:16)
--- NOTE | 2025-01-20 06:59 | W.PN.CT ---
Today's Communication / Plan
-
-pod #1
-no issues overnight
-got total 1000 LR and 2 pRBCs
-CI 2.71, CO 5.10, SVR 815. Drips: Dobut 3, Insulin, Levo 3
-CT outputs: 2 meds 130/340, L pleur 35/120 in 12/24 hrs
-UO 410/1395
-held BB while on Dobut
-wean off drips as tolerated
-maintain swan, a-line, Cordis, pw
-encourage IS, OOB
-Echo on Friday (ordered)
Assessment / Plan
-
- s/p CABG x 5 (HOLM-LAD, [id number]-NW, [id number]); Mitral valve repair [30 mm band annuloplasty]; Left atrial appendage exclusion [35 mm device] by Dr. aCrr on 01/19/25, pod #1
- Intraop DELGADO: left ventricular ejection fraction preoperatively was approximately 45% he had at least severe mitral valve insufficiency that was worse when his PA pressures everett. After surgery his EF was 55% with no significant regional wall motion
abnormalities and the mitral valve was repaired using a band annuloplasty. Given that his left atrium was not dilated and his heart was rotated rightward it was quite difficult to visualize the anterior leaflet of mitral valve and so full ring was
not placed. He had a mild degree of aortic valve deficiency starting the case which was the same postoperatively. At the conclusion, his mitral valve insufficiency went from torrential to mild at best. His PA pressures also normalized to the 30s
and 40s at the conclusion of the case. The mean gradient across the mitral valve was 2 mmHg, there is no systolic anterior motion of the leaflets. His left atrial appendage was also verified be free of any thrombus or debris preoperatively and found
to be totally occlusive postoperatively with a 35mm clip.
- Recent STEMI with cardiovascular collapse, s/p emergency stenting to the mid RCA
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
- Hydronephrosis
- Hyperlipidemia
- Hypertension
- Gout
- Acute on chronic ischemic cardiomyopathy with EF of approximately 40% and new functional mitral valve insufficiency
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
- Functional mitral valve sufficiency, type IIIb
- Acute postop blood loss anemia- s/p 2 pRBCs
- Acute postop atelectasis
- Acute postop hypovolemia with subsequent hypervolemia
Discussed patient care with: Nursing and Care Team
Subjective
-
Date of Service: January 19, 2025
Objective Data
-
Lab Results
01/19/25 16:15
01/19/25 12:25
PT 17.3 Sec (11.4-14.6) H 01/19/25 12:25
INR 1.36 01/19/25 12:25
APTT 31.0 Sec (23.4-35.0) 01/19/25 12:25
Vital Signs
Vital Signs
Temp Pulse Resp BP Pulse Ox
98.4 F 82 22 92/75 99
01/19/25 23:00 01/19/25 23:00 01/19/25 23:00 01/19/25 23:00 01/19/25 23:00
CT Intake/Output/Weight
01/19/25 01/19/25 01/20/25
06:59 18:59 06:59
Intake Total 1628.5 / 1901.4 272.9 / 1901.4
Output Total 1280 / 1625 345 / 1625
Balance 348.5 / 276.4 -72.1 / 276.4
SaO2: 99
Physical Exam
-
General: Awake and AOx3
Cardiovascular: Regular rate & rhythm, No Murmurs and No Rub
Respiratory: Decreased Breath Sounds
Sternum: Stable
Incision: Clean, Dry and Intact
Extremities: No Edema (2+DPs b/l)
Abdomen: soft, nontender, nondistended, + decreased bowel sounds
Data Reviewed
-
Lab Results: Results Reviewed
Medications: Active Meds Reviewed
Chest X-Ray: Report Reviewed and Image Reviewed
ECG: Report Reviewed and Image Reviewed
[2025-01-20 07:08] LABS: Glucose - Point of Care 115 mg/dl (70-99)
--- NOTE | 2025-01-20 07:21 | W.PN.ANS.POP ---
Anesthesia Post Operative
- Anesthesia Post Op Note
Vital Signs Stable-See Nursing Note: Yes (Patient on norepinephrine/dobutamine)
Airway Patent: Yes (Extubated to UT)
Adequate Pain Control: Yes (Patient utilizing prn medications with relief)
Change in Mental Status: No
Current Postoperative Nausea & Vomiting: No
Anesthesia Complications: No
General Anesthetic Recall: No
Unplanned Admission: No
Post Op Hydration Adequate: Yes
[2025-01-20] MEDS: FLEXERIL 5 MG PO ×2 (07:59→19:07)
--- NOTE | 2025-01-20 08:19 | W.PN.INTV ---
Today's Communication / Plan
Recommendations
- Continue to wean Levophed and dobutamine as tolerated
- Continue incentive spirometry
Assessment
-
59-year-old gentleman with multivessel coronary artery disease s/p coronary artery bypass graft, mitral valve repair, left atrial appendage exclusion, POD # 1
Titrate off pressors per protocol, Levophed @ 3, dobutamine infusing at 3. MAP of 73.
ECHO reviewed with low EF. 45-50%
PA catheter readings reviewed, , mean 30
Management of chest tubes per primary service
Patient extubated now, saturating 96% on 2 L supplemental oxygen.
CXR with mild basilar atelectasis
Maintain supplement oxygen as needed
No prior known history of pulmonary disease
Can add nebulizers if needed
Aspiration precautions
Encouraged incentive spirometry, OOB/ambulation/early mobility
Advance diet as tolerated following extubation
GI prophylaxis: Protonix
Monitor critical I/O's
Mitchell/chest tube output
Hb/platelets postoperatively, drift, s/p PRBC, Hb 10 this AM.
Trend CBC for now
Can transfuse if indicated for Hb <7, plt <50 in surgical patients
DVT prophylaxis including SCDs
Insulin protocol initiated and ongoing
Transition to SQ/off as indicated per team
Other medical diagnoses:
- H/o Alcoholism. In remission
- H/o chewing tobacco, cigar use. Patient reports having quit recently. Recommended ongoing follow up with Primary care provider and dentist for oral cavity exam.
- Nephrolithiasis
- Inguinal hernia
- Diverticulosis
- Coronary artery disease, status post PCI 12/2024, CABG 01/2025
- STEMI 12/2024, s/p PCI, complicated vy VF/Asystole requiring CPR and temporary pacing
- Mitral regurgitation, moderate to severe. s/p repair 01/2025
Critical Care time [38] mins -- The patient is admitted for acute critical illness for the treatment of vital organ failure and/or prevention of further life-threatening conditions. Total care includes time spent in review of history, physical exam,
medications, hemodynamic/ventilator parameters, laboratory data, imaging and discussion with house staff, pharmacy, respiratory therapy, mold burner, and nursing
Data:
CXR 01/2025: Unremarkable
CT Chest 01/2025: Minimal linear left lower lobe opacities, consistent with partial atelectasis or scarring. Lungs otherwise clear.
Moderate coronary arterial calcifications.
DELGADO 01/2025: 1. Normal left ventricular size with mildly reduced left ventricular function. Mild hypokinesis of the mid to distal inferior and inferolateral wall.
2. Ejection fraction is 45-50% by visual assessment.
3. Right ventricular size and systolic function are within normal limits.
4. Mild aortic regurgitation.
5. Mildly thickened mitral valve leaflets with restricted posterior leaflet at P2. There is a central jet of moderate to severe mitral regurgitation. Peak E wave velocity 62 cm/s.
RHC 01/2025: Pulmonary capillary wedge pressure 17 with V wave to 25, cardiac index 3.09. Mean pulmonary artery pressure 23. PVR 1.02.
LHC 01/2025: Significant multivessel coronary artery disease
ECHO 01/2025: 1. Normal ventricular size with mild to moderately reduced LV systolic function with EF 42%.
2. LV Wall Motion: basal and mid inferior wall is abnormal, as described below.
3. Normal right ventricular size and function.
4. At least moderate mitral regurgitation.
5. Trace tricuspid regurgitation with estimated pulmonary artery pressure of 29 mmHg assuming a right atrial pressure of 3 mmHg.
6. No prior study for comparison.
Subjective Dataa
Subjective Data
Date of Service:
Date of Service: January 20, 2025
Subjective:
Patient extubated, currently lying in bed in no acute distress.
Review of Systems
Genitourinary: Other (No new symptoms reported)
Objective Data
Data Reviewed
Vital Signs / I&O / Oxygen:
Vital Signs
Temp Pulse Resp BP Pulse Ox
99.3 F 79 24 85/72 96
01/20/25 05:00 01/20/25 07:36 01/20/25 07:36 01/20/25 07:36 01/20/25 07:36
Intake and Output
01/19/25 01/20/25 01/21/25
06:59 06:59 06:59
Intake Total 2663.2 / 2729.1 65.9 / 65.9
Output Total 1924 / 5
Balance 738.2 / 784.1 45.9 / 45.9
SaO2 [SIMV] 100
SaO2 96
Nasal Cannula flow liters per 1
minute
Physical Exam
General: Comfortable
HEENT: Normocephalic
Cardiovascular: S1-S2 and Peripheral Edema (Trace edema )
Respiratory: Clear
GI: Soft and Non Distended
Neurology: Awake
Skin: Warm
Labs/Micro/Reports
Lab Data
01/20/25 04:11
01/20/25 04:11
Laboratory Results
01/19/25
12:25
PT 17.3 H
INR 1.36
APTT 31.0
pH 7.43
pCO2 37
pO2 182 H
HCO3 24.6
O2 Delivery Level Not Reportable
--- NOTE | 2025-01-20 08:30 | PTCARENOTE ---
Assumed care of patient at 0700. Pt is awake, alert, and oriented. Pt with complaints of pain, PRN Roxicodone and Flexeril administered per order. Pt remains SR 73, BP 102/53 MAP 67. PA 43/21, CVP 17. Pulse oximetry 98% on room air. Mediastinal
chest tubes x2 and left pleural chest tube in place to -20 suction, no sign of air leak or crepitus. Bowel sounds hypoactive. Mitchell catheter remains in place, draining yellow urine out. Midsternal incision approximated and LOPEZ. Left leg with jose maria
wrap in place. Right IJ swan at 44cm, cordis intact. Left radial Rima in place. Pt remains on Dobutamine, Levo, and Insulin.
[2025-01-20 09:28] LABS: Glucose - Point of Care 93 mg/dl (70-99)
[2025-01-20] MEDS: PLAVIX 75 MG PO (09:33)
[2025-01-20] MEDS: SENOKOT 8.6 MG PO ×2 (09:33→20:07)
[2025-01-20] MEDS: PROTONIX 40 MG PO (09:33)
[2025-01-20] MEDS: VITAMIN C 500 MG PO (09:33)
[2025-01-20] MEDS: MAGNESIUM OXIDE 400 MG PO ×2 (09:33→20:07)
[2025-01-20] MEDS: FEOSOL 325 MG PO (09:33)
[2025-01-20] MEDS: LOW STRENGTH ASPIRIN 81 MG PO (09:33)
[2025-01-20] MEDS: NEURONTIN 100 MG PO ×3 (09:33→21:16)
[2025-01-20] MEDS: PACERONE 200 MG PO ×3 (09:33→21:16)
[2025-01-20] MEDS: BACTROBAN 2% OINTMENT 1 APPLIC NASAL ×2 (09:34→20:06)
[2025-01-20] MEDS: CALCIUM GLUCONATE 100 IV (09:54)
[2025-01-20 11:15] LABS: Glucose - Point of Care 99 mg/dl (70-99)
[2025-01-20] MEDS: NSS IV (11:41)
--- NOTE | 2025-01-20 11:53 | W.PN.CARDCBS ---
Addendum entered and electronically signed by Jordyn Delgado MD 01/20/25 16:31:
I saw and examined the patient.
The Tankman's note was reviewed and I agree with the note.
Comment: He is sitting up in the chair with family at the bedside. He is doing well overall.
Exam stable with mild edema. Distant heart sounds. Right IJ in place. Coarse anterior breath sounds and chest tubes in place.
He has multivessel coronary disease status post CABG x 5. Severe mitral regurgitation status post mitral valve repair and left atrial appendage exclusion 01/19/2025.
He did receive blood earlier today. Color appears good. Vital signs fairly stable.
- Continue usual postop care.
- Continue to follow labs including hemoglobin posttransfusion.
- Continue to follow telemetry.
- Dobutamine is being weaned.
- EKG stable. Follow.
Original Note:
Today's Communication / Plan
-
continue post op care
in SR
Impression / Plan
-
Stretch Box Tender: Dr. Childs
Assessment:
MV CAD
Severe MR
s/p CABG x5 (HOLM-LAD, ZAKB-Jwwe-PC, [id number]-[id number]-[id number]) with mitral valve repair [30 mm band annuloplasty] and LAAE 01/19/25
HTN
HLD
Plan:
-s/p CABG x5 (HOLM-LAD, SSBL-Omnf-DM, [id number]-[id number]-[id number]) with mitral valve repair [30 mm band annuloplasty] and LAAE 01/19/25
-extubated, weaning supp O2
-repeating CXR as with some SOB s/p pulling pleural CT
-off levo, weaning dobut, presently @2.5
-for diuresis
-EKG 01/20 SR with evidence of prior inferior infarct. in SR on review of tele with 1 run of 7-beats NSVT. K/mag stable. continue amio. holding BB while remains on dobut
-hgb 10 s/p 2 U PRBCs 01/19. continue asa, plavix
-continue post op care
-d/w nursing
Progress Note - Stretch Box Tender
Subjective
Date of Service: January 20, 2025
reports some mucus which he can't get up. has some post op pain improved with dilaudid
Objective
Labs:
01/20/25 04:11
01/20/25 04:11
Labs
Hgb 10.0 g/dL (13.0-18.0) L 01/20/25 04:11
Hct 30.0 % (39.0-52.0) L 01/20/25 04:11
Plt Count 283 10^3/uL (130-400) 01/20/25 04:11
PT 17.3 Sec (11.4-14.6) H 01/19/25 12:25
INR 1.36 01/19/25 12:25
APTT 31.0 Sec (23.4-35.0) 01/19/25 12:25
Sodium 132 mmol/L (135-145) L 01/20/25 04:11
Potassium 4.6 mmol/L (3.5-5.1) 01/20/25 04:11
BUN 17 mg/dl (9-20) 01/20/25 04:11
Creatinine 0.9 mg/dL (0.7-1.3) 01/20/25 04:11
Glucose 98 mg/dl (70-99) 01/20/25 04:11
Vital Signs and I&O:
Vital Signs
Temp Pulse Resp BP Pulse Ox
99.4 F 71 23 98/50 92
01/20/25 11:00 01/20/25 11:00 01/20/25 11:00 01/20/25 11:00 01/20/25 11:21
Vital Signs
Temp Pulse Resp BP Pulse Ox
99.4 F 71 23 98/50 92
01/20/25 11:00 01/20/25 11:00 01/20/25 11:00 01/20/25 11:00 01/20/25 11:21
Intake & Output
01/18/25 01/19/25 01/20/25 01/21/25
07:59 07:59 07:59 07:59
Intake Total 2729.1 / 2770.5 202.6 / 202.6
Output Total 1944 95 / 95
Balance 784.1 / 790.5 107.6 / 107.6
Physical Exam
Physical Exam
GEN: No distress, awake, alert, oriented x3. on supp O2
HEENT: supple, anicteric, mmm, eomi
LUNGS: some coughing with deep inspiration, no wheezes
CV: Reg, S1/S2, no murmur
ABD: soft, ND, hypoactive BS
EXT: No cyanosis, clubbing. trace edema of B/L LE
NEURO: Gross non-focal
SKIN: Warm, pink, dry. No rash. Sternotomy incision c/d/i
[2025-01-20] MEDS: VANCOCIN 200 IV (11:57)
[2025-01-20] MEDS: MUCINEX 600 MG PO ×2 (12:00→20:07)
[2025-01-20] MEDS: LASIX 40 MG IV (12:00)
--- NOTE | 2025-01-20 12:30 | PTCARENOTE ---
Levo gtt titrated off. Pt received 40mg IV Lasix. Left pleural chest tubes d/c'd per order. Assisted pt OOB to chair, pt tolerated well.
[2025-01-20 13:05] LABS: Glucose - Point of Care 144 mg/dl (70-99)
--- NOTE | 2025-01-20 14:23 | CM ---
Chart reviewed. Patient is OOB sitting in the chair. Patient is independent of ADLS, lives with his in a 2 STH, 1 SONJA, 0 DME. Plan is for the patient to return home with CT Transitional RN. CM to follow
[2025-01-20] MEDS: FERRLECIT 110 MG IV (14:49)
[2025-01-20 15:03] LABS: Glucose - Point of Care 100 mg/dl (70-99)
--- NOTE | 2025-01-20 16:30 | PTCARENOTE ---
SBP 80's, restarted on Levo at 2mcg/min. BP now 111/47 MAP 62, PA 36/10, CVP 6. CO 4.25, CI 2.26, SVR 1016. Dobutamine now at 2mcg/kg/min.
[2025-01-20] MEDS: ZOFRAN 4 MG IV (19:07)
--- NOTE | 2025-01-20 20:25 | PTCARENOTE ---
received pt from previous rn. Pt AAOx4, NSR per tele monitor HR 70s. A/V wires insulated +pulses. PAP 40s/10s. CVP ~ 11. pox 95% on RA. lungs diminished throughout. CTx2 set to -20cm wall suction. No air leaks/tidaling/ crepitus. occasional
productive cough with jules bloody sputum. hypoactive bs. Mitchell draining clear yellow urine. all surgical sites intact. RIJ cordis w/ swan floated to 44. all lines leveled, zeroed, and flushed. PIV intact. plan of care discussed and questions
encouraged. call reza within reach. see worklist for full nursing assessment, VS, I&Os, and nursing interventions.
[2025-01-20] MEDS: LIPITOR 80 MG PO (21:16)
[2025-01-21] VITALS (42 sets, daily range): BP systolic 91–133; BP diastolic 50–88; BMI 30.1
[2025-01-21 00:38] LABS: Blood Urea Nitrogen 21 mg/dl (9-20); Calcium 8.3 mg/dl (8.4-10.2); Carbon Dioxide 27 mmol/L (22-30); Chloride 99 mmol/L (98-107); Estimated Creatinine Clearance 74 ml/min; Glucose 130 mg/dl (70-99); Magnesium 2.1 mg/dl (1.6-2.3); Potassium 4.6 mmol/L (3.5-5.1); Sodium 129 mmol/L (135-145); eGFR > 60.00
[2025-01-21] MEDS: CALCIUM GLUCONATE 100 IV (00:48)
--- NOTE | 2025-01-21 00:56 | PTCARENOTE ---
Patient noted to have absent P waves on CM. CVPA made aware, EKG obtained which showed a junctional rhythm. Labs drawn and sent for increased PVCs. 2g calcium gluconate given, see MAR. Otherwise pt remains unchanged, assessment of needs ongoing.
--- NOTE | 2025-01-21 00:58 | PTCARENOTE ---
Patient noted to have absent P waves on CM. CVPA made aware, EKG obtained which showed a junctional rhythm. Labs drawn and sent for increased PVCs. 2g calcium gluconate given, see MAR. Dobut to be titrated 0.5 Q8H, based on MVO2 results, dobut to
remain at 2 at this time per CVPA, reassessment at 0200. Otherwise pt remains unchanged, assessment of needs ongoing.
[2025-01-21 04:59] LABS: Hematocrit 26.4 % (39.0-52.0); Hemoglobin 8.6 g/dL (13.0-18.0); Mean Corp Hgb Conc. 32.6 g/dL (33.0-37.0); Mean Corpuscular Volume 81.0 fL (80.0-94.0); Platelet Count 257 10^3/uL (130-400); Red Cell Dist. Width 14.8 % (11.5-14.5)
[2025-01-21] MEDS: TYLENOL 975 MG PO ×3 (05:10→21:44)
[2025-01-21 05:38] LABS: Blood Urea Nitrogen 21 mg/dl (9-20); Calcium 8.7 mg/dl (8.4-10.2); Carbon Dioxide 27 mmol/L (22-30); Chloride 97 mmol/L (98-107); Estimated Creatinine Clearance 82 ml/min; Glucose 130 mg/dl (70-99); Magnesium 2.1 mg/dl (1.6-2.3); Sodium 128 mmol/L (135-145); eGFR > 60.00
[2025-01-21 05:44] LABS: Potassium 4.8 mmol/L (3.5-5.1)
--- NOTE | 2025-01-21 08:04 | W.PN.CT ---
Documented by User: Nael Richard PA-C 01/21/25 08:04
Today's Communication / Plan
-
-pod #2
-looks good and feels well overall. No complaints
-in accelerated junctional rhythm 60s - put Amio on hold. BB is already held since pt is on Dobutamine
-5 beat NSVT overnight- lytes wnl
-mvO2 53.3 at midnight. Drips Dobut 2, Levo 2. Ci 2.52/CO 4.74 this am
-CT outputs: 2 meds 40/130 in 12/24 hrs
-maintain pw, Cordis, Mitchell
-repleted Ca
-weaned off O2 - pOx 93-96 on RA
-diuresed with 40 iv Lasix on 01/20. UO 770cc- continue Lasix
-follow Na - 128 today (132 on 01/20)
-monitor for ileus. Abdomen is mildly distended, nontender, + flatus, occasional nausea
-current meds (ASA, Plavix, Lipitor, Mg, Feosol, Mucinex, Gabapentin, Protonix)
-wean Dobut and Levo as tolerated
-encourage IS
Assessment / Plan
-
- s/p CABG x 5 (HOLM-LAD, ZNMJ-[id number]-RC, [id number]); Mitral valve repair [30 mm band annuloplasty]; Left atrial appendage exclusion [35 mm device] by Dr. Carr on 01/19/25, pod #2
- Intraop DELGADO: left ventricular ejection fraction preoperatively was approximately 45% he had at least severe mitral valve insufficiency that was worse when his PA pressures everett. After surgery his EF was 55% with no significant regional wall motion
abnormalities and the mitral valve was repaired using a band annuloplasty. Given that his left atrium was not dilated and his heart was rotated rightward it was quite difficult to visualize the anterior leaflet of mitral valve and so full ring was
not placed. He had a mild degree of aortic valve deficiency starting the case which was the same postoperatively. At the conclusion, his mitral valve insufficiency went from torrential to mild at best. His PA pressures also normalized to the 30s
and 40s at the conclusion of the case. The mean gradient across the mitral valve was 2 mmHg, there is no systolic anterior motion of the leaflets. His left atrial appendage was also verified be free of any thrombus or debris preoperatively and found
to be totally occlusive postoperatively with a 35mm clip.
- Recent STEMI with cardiovascular collapse, s/p emergency stenting to the mid RCA
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
- Hydronephrosis
- Hyperlipidemia
- Hypertension
- Gout
- Acute on chronic ischemic cardiomyopathy with EF of approximately 40% and new functional mitral valve insufficiency
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
- Functional mitral valve sufficiency, type IIIb
- Acute postop blood loss anemia- s/p 2 pRBCs
- Acute postop atelectasis
- Acute postop hypovolemia with subsequent hypervolemia
- Acute postop hyponatremia
- Junctional accelerated rhythm 01/20/25
- 5 beat NSVT 01/20/25
Discussed patient care with: Nursing and Care Team
Subjective
-
Date of Service: January 21, 2025
Objective Data
-
PT 17.3 Sec (11.4-14.6) H 01/19/25 12:25
INR 1.36 01/19/25 12:25
APTT 31.0 Sec (23.4-35.0) 01/19/25 12:25
Vital Signs
Vital Signs
Temp Pulse Resp BP Pulse Ox
98.9 F 71 22 100/58 94
01/21/25 00:00 01/21/25 00:00 01/21/25 00:00 01/21/25 00:00 01/21/25 00:00
CT Intake/Output/Weight
11/20/25 11/20/25 11/21/25
06:59 18:59 06:59
Intake Total 1034.7 / 2729.1 482.7 / 721.1 238.4 / 721.1
Output Total 645 / 1945 870 / 1080 210 / 1080
Balance 389.7 / 784.1 -387.3 / -358.9 28.4 / -358.9
SaO2: 94
Physical Exam
-
General: Awake and AOx3
Cardiovascular: Regular rate & rhythm (accelerated junctional rhythm), No Murmurs and No Rub
Respiratory: Decreased Breath Sounds
Sternum: Stable
Incision: Clean, Dry and Intact
Extremities: Edema +1 (hands and legs b/l)
Abdomen: mildly distended, soft, +bowel sounds, nontender, + nausea, + flatus
Data Reviewed
-
Lab Results: Results Reviewed
Medications: Active Meds Reviewed
Chest X-Ray: Report Reviewed and Image Reviewed
ECG: Report Reviewed and Image Reviewed

Documented by User: DAVI Little 01/21/25 13:59
Assessment / Plan
-
- s/p CABG x 5 (HOLM-LAD, ELIT-Zjmy-UH, [id number]); Mitral valve repair [30 mm band annuloplasty]; Left atrial appendage exclusion [35 mm device] by Dr. Carr on 01/19/25, pod #2
- Intraop DELGADO: left ventricular ejection fraction preoperatively was approximately 45% he had at least severe mitral valve insufficiency that was worse when his PA pressures everett. After surgery his EF was 55% with no significant regional wall motion
abnormalities and the mitral valve was repaired using a band annuloplasty. Given that his left atrium was not dilated and his heart was rotated rightward it was quite difficult to visualize the anterior leaflet of mitral valve and so full ring was
not placed. He had a mild degree of aortic valve deficiency starting the case which was the same postoperatively. At the conclusion, his mitral valve insufficiency went from torrential to mild at best. His PA pressures also normalized to the 30s
and 40s at the conclusion of the case. The mean gradient across the mitral valve was 2 mmHg, there is no systolic anterior motion of the leaflets. His left atrial appendage was also verified be free of any thrombus or debris preoperatively and found
to be totally occlusive postoperatively with a 35mm clip.
- Recent STEMI with cardiovascular collapse, s/p emergency stenting to the mid RCA
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
- Hydronephrosis
- Hyperlipidemia
- Hypertension
- Gout-
- Acute on chronic HFrEF (EF 40% pre-op TTE)>HFimpEF (EF 55% post-op)
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
- Functional mitral valve sufficiency, type IIIb
- Acute postop blood loss anemia- s/p 2 pRBCs
- Acute postop atelectasis
- Acute postop hypovolemia with subsequent hypervolemia
- Acute postop hyponatremia
- Junctional accelerated rhythm 01/20/25
- 5 beat NSVT 01/20/25
--- NOTE | 2025-01-21 08:07 | W.PN.INTV ---
Today's Communication / Plan
Recommendations
- Wean dobutamine as tolerated
- Incentive spirometry
- Supervisor Pig Machine service will sign off once patient is transferred out of ICU
Assessment
-
59-year-old gentleman with multivessel coronary artery disease s/p coronary artery bypass graft, mitral valve repair, left atrial appendage exclusion, POD # 2
Titrate off pressors per protocol, off Levophed now, dobutamine infusing at 2. MAP of 77. CVP 9
ECHO reviewed with low EF. 45-50%
PA catheter readings reviewed, 01/03, mean 19
Patient extubated now, saturating 96% on RA
CXR with trace left-sided pleural effusion with compressive atelectasis.
Supplemental oxygen as needed, currently on room air
No prior known history of pulmonary disease
Can add nebulizers if needed
Aspiration precautions
Encouraged incentive spirometry, OOB/ambulation/early mobility
Advance diet as tolerated following extubation
GI prophylaxis: Protonix
Monitor critical I/O's. Mild hyponatremia noted. -312 mL
Mitchell/chest tube output
Hb/platelets postoperatively, drift, s/p PRBC, Hb 8.6 this AM.
Trend CBC for now
Can transfuse if indicated for Hb <7, plt <50 in surgical patients
DVT prophylaxis including SCDs
Insulin per protocol
Other medical diagnoses:
- H/o Alcoholism. In remission
- H/o chewing tobacco, cigar use. Patient reports having quit recently. Recommended ongoing follow up with Primary care provider and dentist for oral cavity exam.
- Nephrolithiasis
- Inguinal hernia
- Diverticulosis
- Coronary artery disease, status post PCI 12/2024, CABG 01/2025
- STEMI 12/2024, s/p PCI, complicated vy VF/Asystole requiring CPR and temporary pacing
- Mitral regurgitation, moderate to severe. s/p repair 01/2025
Critical Care time [35] mins -- The patient is admitted for acute critical illness for the treatment of vital organ failure and/or prevention of further life-threatening conditions. Total care includes time spent in review of history, physical exam,
medications, hemodynamic/ventilator parameters, laboratory data, imaging and discussion with house staff, pharmacy, respiratory therapy, mine captain, and nursing
Data:
CXR 01/2025: Unremarkable
CT Chest 01/2025: Minimal linear left lower lobe opacities, consistent with partial atelectasis or scarring. Lungs otherwise clear.
Moderate coronary arterial calcifications.
DELGADO 01/2025: 1. Normal left ventricular size with mildly reduced left ventricular function. Mild hypokinesis of the mid to distal inferior and inferolateral wall.
2. Ejection fraction is 45-50% by visual assessment.
3. Right ventricular size and systolic function are within normal limits.
4. Mild aortic regurgitation.
5. Mildly thickened mitral valve leaflets with restricted posterior leaflet at P2. There is a central jet of moderate to severe mitral regurgitation. Peak E wave velocity 62 cm/s.
RHC 01/2025: Pulmonary capillary wedge pressure 17 with V wave to 25, cardiac index 3.09. Mean pulmonary artery pressure 23. PVR 1.02.
LHC 01/2025: Significant multivessel coronary artery disease
ECHO 01/2025: 1. Normal ventricular size with mild to moderately reduced LV systolic function with EF 42%.
2. LV Wall Motion: basal and mid inferior wall is abnormal, as described below.
3. Normal right ventricular size and function.
4. At least moderate mitral regurgitation.
5. Trace tricuspid regurgitation with estimated pulmonary artery pressure of 29 mmHg assuming a right atrial pressure of 3 mmHg.
6. No prior study for comparison.
Subjective Dataa
Subjective Data
Date of Service:
Date of Service: January 21, 2025
Subjective:
Patient comfortably lying in bed in no acute distress.
Review of Systems
Genitourinary: Other (All 14 systems reviewed and negative except as stated above in the history of present illness.)
Objective Data
Data Reviewed
Vital Signs / I&O / Oxygen:
Vital Signs
Temp Pulse Resp BP Pulse Ox
99.2 F 63 20 101/64 95
01/21/25 07:00 01/21/25 07:00 01/21/25 07:00 01/21/25 06:30 01/21/25 07:00
Intake and Output
01/20/25 01/21/25 01/22/25
06:59 06:59 06:59
Intake Total 2663.2 / 2729.1 1052.4 / 1074.7 22.3 / 22.3
Output Total 1925 / 1945 1305 / 1335 30
Balance 738.2 / 784.1 -252.6 / -260.3 -7.7 / -7.7
SaO2 [SIMV] 100
SaO2 95
Nasal Cannula flow liters per 2
minute
Physical Exam
General: Comfortable
HEENT: Normocephalic
Cardiovascular: S1-S2 and Peripheral Edema (Trace edema )
Respiratory: Clear
GI: Soft and Non Distended
Neurology: Awake
Skin: Warm
Labs/Micro/Reports
Lab Data
01/21/25 04:35
01/21/25 04:35
[2025-01-21] MEDS: SENOKOT 8.6 MG PO ×2 (08:16→20:33)
[2025-01-21] MEDS: PLAVIX 75 MG PO (08:16)
[2025-01-21] MEDS: FEOSOL 325 MG PO (08:16)
[2025-01-21] MEDS: NEURONTIN 100 MG PO ×3 (08:16→21:44)
[2025-01-21] MEDS: PROTONIX 40 MG PO (08:16)
[2025-01-21] MEDS: MUCINEX 600 MG PO ×2 (08:16→20:33)
[2025-01-21] MEDS: MAGNESIUM OXIDE 400 MG PO ×2 (08:16→20:33)
[2025-01-21] MEDS: LOW STRENGTH ASPIRIN 81 MG PO (08:16)
[2025-01-21] MEDS: VITAMIN C 500 MG PO (08:16)
[2025-01-21] MEDS: LASIX 20 MG IV (08:16)
[2025-01-21] MEDS: BACTROBAN 2% OINTMENT 1 APPLIC NASAL ×2 (08:17→20:34)
--- NOTE | 2025-01-21 09:43 | PTCARENOTE ---
Received pt from workers compensation claims assistant RN at 0700. Pt AOX4, pupils 3, equal, reactive. In and out of Junctional Rhythm HR 70-80 and SR 70-80s, PVCs. Maintaining SBP goal 90-110. +2 BLE edema, palpable pulses BUE and BLE. Index 2.69, dec dobut to 1.5 per CTNP.
Clr, dim lung sounds, pt self administering IS and acapella, [address] to -20 LCWS, no drainage. Normal BS, enrique in place, clr yellow urine, lasix given this am for low UOP. MS DIRECTOR [employer] NURSING intact, graft sites LOPEZ intact. RIJ cordis w/swan at 44, PIV x1.
Dobut gtt infusing. See flowsheets for further documentation.
--- NOTE | 2025-01-21 10:18 | CARDSERVLU ---
Echocardiogram with Lumason completed after protocol screening completed. Allergies verified.
Patent IV site: __Right hand 18 G PC site clear___
IV site flushed with 0.9% NaCl pre and post administration.
Diluted bolus method utilized to enhance visualization of ventricular mejias.
Total volume given: ___3_ mL
Patient tolerated all procedures well without complications. Pt offers no complaints.
--- NOTE | 2025-01-21 11:12 | PTCARENOTE ---
Pt reassessment unchanged, VSS. Removed CT medx2, pt tolerated well. Dobut infusing.
--- NOTE | 2025-01-21 13:12 | PN.CDI ---
CDI
- -
CDI:
Physician Documentation Request
Admit Date: 01/19/25 05:[address] Surgery,
Clinical Indicators:
Patient admitted MV CAD & mitral valve insufficiency; s/p CABG x 5, MVR, LADY exclusion 01/19/25.
01/20 Lasix 40 mg IV x 1 + Dobutamine gtt
01/20 02 requirements: increased from room air to 2L for sa02 90-91%
01/21 PN, 'Acute on chronic ischemic cardiomyopathy with EF of approximately 40% and new functional mitral valve insufficiency'
Based on the above, could you clarify in the progress notes, the appropriate diagnosis, if significant, that supports the above abnormalities and additional evaluation, monitoring and/or treatment rendered:
Acute on chronic HFrEF
Acute on chronic ischemic cardiomyopathy only
Other, please specify
Use of terms such as suspected, likely, concern for, or probable (associated with a specific diagnosis that is being evaluated, monitored, or treated as if it exists) are acceptable and can be coded in the inpatient setting, when documented at the
time of discharge.
Thank you,
GRACIA Reynolds RN
CDI Specialist
available via tiger text
Please use your independent medical judgment in providing your response.
--- NOTE | 2025-01-21 13:36 | W.PN.CARDCBS ---
Addendum entered and electronically signed by Jordyn Delgado MD 01/21/25 15:58:
I saw and examined the patient.
The Dress Draper's note was reviewed and I agree with the note.
Comment: Sitting in the chair. Tells me he has not worked on incentive spirometer today. Family at the bedside.
He has some symptoms of pain but doing well overall.
Exam regular rate and rhythm with distant heart sounds, coarse breath sounds, +1 to +2 bilateral lower extremity edema.
Junctional rhythm intermittently noted on telemetry. EKG reviewed with junctional rhythm. 60s to 70s and not clearly symptomatic.
He is status post CABG x 5 and mitral valve repair along with left atrial appendage exclusion.
- Continue to monitor telemetry given junctional rhythm.
- Wean dobutamine as tolerates.
- Avoid AV junior blocking agents/amiodarone at this time.
- Continue diuresis. Follow creatinine.
- Incentive spirometry encouraged.
Original Note:
Today's Communication / Plan
-
Repeat EKG
Agree with Lasix 20 mg IV
Amiodarone and beta-paola currently on hold for periods of junctional bradycardia
Wean dobutamine drip as able
Continue aspirin Plavix and statin
Impression / Plan
-
PCP: Mathew Basilio
Compressed Gas Equipment Mechanic: Dr. Childs
Assessment:
MV CAD
Severe MR
s/p CABG x5 (HOLM-LAD, CKRC-Fqju-DL, [id number]-[id number]) with mitral valve repair [30 mm band annuloplasty] and LAAE 01/19/25
HTN
HLD
Echo 01/21/2025: EF 52%. Hypokinesis of septal wall as well as basal inferior hypokinesis. Status post mitral repair with peak/mean gradient 9/2 mmHg and no paravalvular leak. Trace AI.
DELGADO 01/19/2025 postop: EF 55%, mild basal inferior wall hypokinesis. MV ring well-seated with normal MV leaflet motion. No EDITA. Mild MR with thin MR jet seen at P2/3 coaptation area. Peak/mean gradient 6/2 mmHg. Mild AI. Trace WI. Left atrial
appendage is adequately excluded by 2D echo and color Doppler interrogation.
Echo 01/04/2025: EF 42%. Basal and mid inferior wall abnormality. Moderate MR. Trace TR with PAP 29 mmHg
Plan:
-s/p CABG x5 (HOLM-LAD, KPHC-Sgix-IJ, [id number]-[id number]-[id number]) with mitral valve repair [30 mm band annuloplasty] and LAAE 01/19/25
-Doing well postop. Sitting in chair on room air. Notes some sternal incision pain.
-Chest x-ray 01/21/2025 with small left pleural effusion and compressive atelectasis on left.
-Weight is up overnight although patient does not appear to be significant volume overloaded. Did get IV Lasix 20 mg x 1 01/21/2025. Continue to monitor and trend weight.
-off levo, weaning dobutamine, presently @2 mcg/kg/min
-Patient found to have accelerated junctional rhythm in the 60s-70's on tele 01/21/2025. Now back in normal sinus rhythm. Check ECG. Amiodarone and beta-paola are on hold.
-hgb slowly trending down was 10 on 01/20/2025 now 8.6 01/21/25, s/p 2 U PRBCs 01/19. Status post iron infusion 01/20 and 01/21
-Echo reviewed with patient which shows preserved ejection fraction with EF of 52%, well-seated mitral valve ring without paravalvular leak.
-continue asa, plavix for graft patency
-continue post op care
-d/w nursing
Discussed with patient, CT surgery and nursing
Progress Note - Compressed Gas Equipment Mechanic
Subjective
Date of Service: January 21, 2025
Doing well postop. Sitting in chair on room air. Notes some sternal incision pain.
Objective
Labs:
01/21/25 04:35
01/21/25 04:35
Labs
Hgb 8.6 g/dL (13.0-18.0) L 01/21/25 04:35
Hct 26.4 % (39.0-52.0) L 01/21/25 04:35
Plt Count 257 10^3/uL (130-400) 01/21/25 04:35
PT 17.3 Sec (11.4-14.6) H 01/19/25 12:25
INR 1.36 01/19/25 12:25
APTT 31.0 Sec (23.4-35.0) 01/19/25 12:25
Sodium 128 mmol/L (135-145) L 01/21/25 04:35
Potassium 4.8 mmol/L (3.5-5.1) 01/21/25 04:35
BUN 21 mg/dl (9-20) H 01/21/25 04:35
Creatinine 1.0 mg/dL (0.7-1.3) 01/21/25 04:35
Glucose 130 mg/dl (70-99) H 01/21/25 04:35
Vital Signs and I&O:
Vital Signs
Temp Pulse Resp BP Pulse Ox
99.2 F 65 33 103/59 96
01/21/25 13:00 01/21/25 13:15 01/21/25 13:15 01/21/25 13:00 01/21/25 13:15
Vital Signs
Temp Pulse Resp BP Pulse Ox
99.2 F 65 33 103/59 96
01/21/25 13:00 01/21/25 13:15 01/21/25 13:15 01/21/25 13:00 01/21/25 13:15
Intake & Output
01/19/25 01/20/25 01/21/25 01/22/25
06:59 06:59 06:59 06:59
Intake Total 2663.2 / 2729.1 1052.4 / 1074.7 154.1 / 154.1
Output Total 1924 / 1944 1305 / 1335 1010 / 1010
Balance 738.2 / 784.1 -252.6 / -260.3 -855.9 / -855.9
Physical Exam
Physical Exam
GEN: No distress, awake, Ox3, sitting in chair
HEENT: supple, anicteric, mmm
LUNGS: Mildly decreased at left base otherwise CTA, no wheezes/rales; on room air
CV: Reg, S1/S2 no murmur, rub or gallop
Chest: Well-approximated sternotomy incision
ABD: soft, BS+, NT/ND
EXT: No edema, clubbing or cyanosis
NEURO: Gross non-focal
SKIN: No rash, warm, dry, pink
[2025-01-21] MEDS: FERRLECIT 110 MG IV (13:38)
--- NOTE | 2025-01-21 14:49 | CM ---
Chart reviewed. Patient is independent of ADLS, lives with his in a 2 STH, 1 SONJA, 0 DME. Plan is for the patient to return home with CT Transitional RN. CM to follow
--- NOTE | 2025-01-21 15:38 | PTCARENOTE ---
Pt reassessment unchanged, VSS, in between junctional and NSR. OOB to the chair x1 assist. Mitchell and gracie removed. Plan to cont slow dobut wean.
[2025-01-21] MEDS: NSS 500 IV (17:14)
[2025-01-21] MEDS: FLEXERIL 5 MG PO (18:12)
[2025-01-21] MEDS: LASIX 40 MG IV (18:29)
--- NOTE | 2025-01-21 20:00 | PTCARENOTE ---
pt received awake alert and oriented. Remains with epicardial pacer wires intact. Voiding large amts urine in the urinal. Assessment as charted.
[2025-01-21] MEDS: LIPITOR 80 MG PO (21:44)
[2025-01-22] VITALS (15 sets, daily range): BP systolic 95–116; BP diastolic 50–79; PULSE 82; O2SAT 98–100; BMI 29.3
--- NOTE | 2025-01-22 00:28 | W.PN.CT ---
Addendum entered and electronically signed by My You MD 01/22/25 18:47:
Please note typo: monitor hyponatremia. this is improving some, continue fluid restriction and diuresis.
Original Note:
Today's Communication / Plan
-
-Plan:
-No major issues overnight. Hemodynamically and neurologically intact
-Dobutamine weaned to 0.5 mcg/kg/min @ 1 AM, will wean to off @ 9 AM
-Amiodarone and BB currently on hold d/t postop junctional rhythm
-Consider addition of low dose Toprol XL when off dobutamine
-Maintain temporary PW another day
-Monitor hyponatremia, cont. diuresis and fluid restriction
-Maintain cordis another day
-Encourage use of IS
-OOB into chair/Ambulate
Assessment / Plan
-
- s/p CABG x 5 (HOLM-LAD, [id number], [id number]); Mitral valve repair [30 mm band annuloplasty]; Left atrial appendage exclusion [35 mm device] by Dr. Carr on 01/19/25, pod #3
- Intraop DELGADO: left ventricular ejection fraction preoperatively was approximately 45% he had at least severe mitral valve insufficiency that was worse when his PA pressures everett. After surgery his EF was 55% with no significant regional wall motion
abnormalities and the mitral valve was repaired using a band annuloplasty. Given that his left atrium was not dilated and his heart was rotated rightward it was quite difficult to visualize the anterior leaflet of mitral valve and so full ring was
not placed. He had a mild degree of aortic valve deficiency starting the case which was the same postoperatively. At the conclusion, his mitral valve insufficiency went from torrential to mild at best. His PA pressures also normalized to the 30s
and 40s at the conclusion of the case. The mean gradient across the mitral valve was 2 mmHg, there is no systolic anterior motion of the leaflets. His left atrial appendage was also verified be free of any thrombus or debris preoperatively and found
to be totally occlusive postoperatively with a 35mm clip.
- Recent STEMI with cardiovascular collapse, s/p emergency stenting to the mid RCA
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
- Hydronephrosis
- Hyperlipidemia
- Hypertension
- Gout-
- Acute on chronic HFrEF (EF 40% pre-op TTE)>HFimpEF (EF 55% post-op)
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
- Functional mitral valve sufficiency, type IIIb
- Acute postop blood loss anemia- s/p 2 pRBCs
- Acute postop atelectasis
- Acute postop hypovolemia with subsequent hypervolemia
- Acute postop hyponatremia
- Junctional accelerated rhythm 01/20/25
- 5 beat NSVT 01/20/25
Discussed patient care with: Cardiology, Nursing, Respiratory Therapy, Pharmacy and Care Team
Subjective
-
Date of Service: January 22, 2025
Pt c/o mild incisional pain, otherwise feels well
Objective Data
-
PT 17.3 Sec (11.4-14.6) H 01/19/25 12:25
INR 1.36 01/19/25 12:25
APTT 31.0 Sec (23.4-35.0) 01/19/25 12:25
Vital Signs
Vital Signs
Temp Pulse Resp BP Pulse Ox
99.1 F 80 18 103/50 94
01/21/25 20:00 01/21/25 23:00 01/22/25 00:00 01/21/25 23:00 01/22/25 00:00
CT Intake/Output/Weight
01/21/25 01/21/25 01/22/25
06:59 18:59 06:59
Intake Total 569.7 / 1074.7 420.7 / 487.9 67.2 / 487.9
Output Total 435 / 1335 1260 / 2785 1525 / 2785
Balance 134.7 / -260.3 -839.3 / -2297.1 -1457.8 / -2297.1
SaO2: 94 (RA)
Physical Exam
-
General: Awake, Oriented and AOx3
Cardiovascular: Regular rate & rhythm, No Murmurs and No Gallop
Respiratory: Decreased Breath Sounds (at bases, otherwise clear)
Sternum: Stable
Incision: Clean, Dry, Intact and Dressing Intact
Extremities: Other (+trace edema )
Data Reviewed
-
Lab Results: Results Reviewed
Medications: Active Meds Reviewed
Chest X-Ray: Report Reviewed and Image Reviewed
ECG: Report Reviewed and Image Reviewed
[2025-01-22 04:46] LABS: Hematocrit 23.3 % (39.0-52.0); Hemoglobin 7.5 g/dL (13.0-18.0); Mean Corp Hgb Conc. 32.2 g/dL (33.0-37.0); Mean Corpuscular Volume 81.8 fL (80.0-94.0); Platelet Count 234 10^3/uL (130-400); Red Cell Dist. Width 15.0 % (11.5-14.5)
--- NOTE | 2025-01-22 05:11 | PTCARENOTE ---
Pt slept well. No change in assessment. Dobutamine decreased to 0.5 mcg/kg/min per order.
[2025-01-22 05:14] LABS: Blood Urea Nitrogen 20 mg/dl (9-20); Calcium 7.9 mg/dl (8.4-10.2); Carbon Dioxide 33 mmol/L (22-30); Chloride 96 mmol/L (98-107); Estimated Creatinine Clearance 91 ml/min; Glucose 90 mg/dl (70-99); Magnesium 2.2 mg/dl (1.6-2.3); Potassium 3.4 mmol/L (3.5-5.1); Sodium 129 mmol/L (135-145); eGFR > 60.00
[2025-01-22] MEDS: TYLENOL 975 MG PO ×3 (05:28→21:59)
[2025-01-22] MEDS: KCL 40 MEQ PO ×3 (05:28→20:24)
--- NOTE | 2025-01-22 07:36 | W.PN.CARDCBS ---
Today's Communication / Plan
-
Usual care as you are
Following rhythm
Following hemoglobin
Keep volume status equal to negative
Sinus rhythm this morning with Amio beta-paola on hold
Impression / Plan
-
PCP: Mathew Basilio
Equipment Inspector: Dr. Childs
Assessment:
MV CAD
Severe MR
s/p CABG x5 (HOLM-LAD, SORC-[id number]-[id number], [id number]) with mitral valve repair [30 mm band annuloplasty] and LAAE 01/19/25
HTN
HLD
Echo 01/21/2025: EF 52%. Hypokinesis of septal wall as well as basal inferior hypokinesis. Status post mitral repair with peak/mean gradient 9/2 mmHg and no paravalvular leak. Trace AI.
DELGADO 01/19/2025 postop: EF 55%, mild basal inferior wall hypokinesis. MV ring well-seated with normal MV leaflet motion. No EDITA. Mild MR with thin MR jet seen at P2/3 coaptation area. Peak/mean gradient 6/2 mmHg. Mild AI. Trace FL. Left atrial
appendage is adequately excluded by 2D echo and color Doppler interrogation.
Echo 01/04/2025: EF 42%. Basal and mid inferior wall abnormality. Moderate MR. Trace TR with PAP 29 mmHg
Plan:
-s/p CABG x5 (HOLM-LAD, VETY-Qogz-RZ, [id number]-[id number]) with mitral valve repair [30 mm band annuloplasty] and LAAE 01/19/25
- Monitor volume status
- Weaning pressors to off
- Sinus rhythm on telemetry this morning. Common to see junctional rhythm post mitral valve surgery. Amiodarone and beta-paola noted on hold
-Follow hemoglobin
-Echo reviewed with patient which shows preserved ejection fraction with EF of 52%, well-seated mitral valve ring without paravalvular leak.
-continue asa, plavix for graft patency
-continue post op care
- Will follow with you
Discussed with patient, CT surgery
Progress Note - Equipment Inspector
Subjective
Date of Service: January 22, 2025
Total Time Spent with Patient (in minutes): Feels well today rhythms improving
Objective
Labs:
01/22/25 04:13
Labs
Hgb 7.5 g/dL (13.0-18.0) L 01/22/25 04:13
Hct 23.3 % (39.0-52.0) L 01/22/25 04:13
Plt Count 234 10^3/uL (130-400) 01/22/25 04:13
PT 17.3 Sec (11.4-14.6) H 01/19/25 12:25
INR 1.36 01/19/25 12:25
APTT 31.0 Sec (23.4-35.0) 01/19/25 12:25
Sodium 129 mmol/L (135-145) L 01/22/25 04:13
Potassium 3.4 mmol/L (3.5-5.1) L D 01/22/25 04:13
BUN 20 mg/dl (9-20) 01/22/25 04:13
Creatinine 0.8 mg/dL (0.7-1.3) 01/22/25 04:13
Glucose 90 mg/dl (70-99) 01/22/25 04:13
Vital Signs and I&O:
Vital Signs
Temp Pulse Resp BP Pulse Ox
98.3 F 84 18 100/57 94
01/22/25 04:00 01/22/25 06:00 01/22/25 06:00 01/22/25 06:00 01/22/25 06:00
Vital Signs
Temp Pulse Resp BP Pulse Ox
98.3 F 84 18 100/57 94
01/22/25 04:00 01/22/25 06:00 01/22/25 06:00 01/22/25 06:00 01/22/25 06:00
Intake & Output
01/20/25 01/21/25 01/22/25 01/23/25
06:59 06:59 06:59 06:59
Intake Total 2663.2 / 2729.1 1052.4 / 1074.7 851.5 / 851.5
Output Total 1925 / 1945 1305 / 1335 3110 / 3110
Balance 738.2 / 784.1 -252.6 / -260.3 -2258.5 / -2258.5
Physical Exam
Physical Exam
����Physical Exam
���������������������General:��no apparent distress, not acutely ill
���������������������������Neck:��supple. no meningeal signs. normal psoterior pharynx
������������������������
���������������������������Heart:��s1/s2 regular rate and rhythm, no murmur. equal radial pulses.
��������������������������Lungs: ��no acute respiratory distress. clear bilaterally
����������������������Abdomen:�normal bowel sounds. not tender. no CVAT
��������������������������Neuro:��alert and oriented. no focal neurological deficits
������������������������������Skin: ��no rash
�����������������������Psychiatric:�well kept. interactive and cooperative
�����������������������Extremities:��no edema. no calf tenderness. negative homans. good distal pulses
��
�
[2025-01-22] MEDS: PLAVIX 75 MG PO (07:53)
[2025-01-22] MEDS: SENOKOT 8.6 MG PO ×2 (07:53→20:19)
[2025-01-22] MEDS: MUCINEX 600 MG PO ×2 (07:54→20:19)
[2025-01-22] MEDS: VITAMIN C 500 MG PO (07:54)
[2025-01-22] MEDS: KCL 20 MEQ PO (07:54)
[2025-01-22] MEDS: FEOSOL 325 MG PO (07:54)
[2025-01-22] MEDS: MAGNESIUM OXIDE 400 MG PO ×2 (07:54→20:19)
[2025-01-22] MEDS: LOW STRENGTH ASPIRIN 81 MG PO (07:54)
[2025-01-22] MEDS: DIAMOX 250 MG PO ×2 (07:54→20:19)
[2025-01-22] MEDS: LASIX 40 MG IV ×2 (07:54→14:53)
[2025-01-22] MEDS: PROTONIX 40 MG PO (07:54)
[2025-01-22] MEDS: NEURONTIN 100 MG PO ×3 (07:54→21:59)
[2025-01-22] MEDS: BACTROBAN 2% OINTMENT 1 APPLIC NASAL ×2 (07:55→20:20)
[2025-01-22] MEDS: NSS IV (07:55)
--- NOTE | 2025-01-22 09:11 | PTCARENOTE ---
assumed care of pt from previous shift RN, sinus rhythm and accelerated junctional rhythm on tele. VSS, + peripheral pulses, trace edema to left lower extremities, epicardial pacing wires insulated. Lungs diminished, coughing and deep breathing
encouraged. +bs, tolerating PO intake, voids spontaneously. Cordis and PIV flush easily. Dobutamine discontinued as ordered. plan of care reviewed and questions encouraged.
--- NOTE | 2025-01-22 12:00 | PTCARENOTE ---
VSS, pt sitting OOB in chair, tolerating short walks in hallway. Patient denies pain. Coughing and deep breathing encouraged.
[2025-01-22 14:12] LABS: Blood Urea Nitrogen 19 mg/dl (9-20); Calcium 8.5 mg/dl (8.4-10.2); Carbon Dioxide 28 mmol/L (22-30); Chloride 96 mmol/L (98-107); Estimated Creatinine Clearance 73 ml/min; Glucose 123 mg/dl (70-99); Potassium 3.4 mmol/L (3.5-5.1); Sodium 130 mmol/L (135-145); eGFR > 60.00
[2025-01-22] MEDS: FERRLECIT 110 MG IV (14:33)
[2025-01-22] MEDS: MILK OF MAGNESIA 30 ML PO (14:53)
[2025-01-22] MEDS: TOPROL XL 12.5 MG PO (20:19)
--- NOTE | 2025-01-22 21:00 | PTCARENOTE ---
Assumed care of pt from kenny RN. Walking rounds completed. Pt AAOx3. Appropriate. SR on the tele monitor. HR 80s. 12.5 Toprol Xl resumed - see MAY. BP stable. Palpable pulses throughout. Trace LLE edema. Pt POX 98% on RA. Occasional cough. Lung
sounds slightly diminished throughout. Deep breathing and IS encouraged. Abdomen soft. +BSx4. Pt states they feel closer to having a BM. +gas. Voiding as needed in urinal w/o issue. Right IJ cordis and PIV x1 intact. All surgical sites stable. Pt
minimal assist OOB. Denies pain at this time. Call reza within reach.
[2025-01-22] MEDS: LIPITOR 80 MG PO (21:59)
[2025-01-23] VITALS (7 sets, daily range): BP systolic 92–112; BP diastolic 50–71; BMI 28.2
--- NOTE | 2025-01-23 00:45 | PTCARENOTE ---
No acute changes in assessment. Pt SR on the tele monitor. HR 70-80s. BP stable. 96% on RA. OOB to have BM then repositioned back into bed. Voiding as needed in urinal. No c/o pain at this time. Call reza within reach.
--- NOTE | 2025-01-23 03:21 | W.PN.CT ---
Today's Communication / Plan
-
-Plan:
-No major issues overnight. Hemodynamically and neurologically intact
-Weaned off Dobutamine yesterday 01/22/25
-Amiodarone remains on hold d/t postop junctional rhythm
-No further junctional rhythm, NSR x 2 days, increased HR with ambulation, resumed low dose Toprol xL last night
-D/C cordis
-D/C temporary PW later today vs tomorrow
-Monitor h/h 7.7/24.3, likely hemodilutional, denies lightheadedness/dizziness
-Monitor hyponatremia, cont. diuresis and fluid restriction
-Hypercapnia has resolved after receiving Diamox yesterday, advised to minimize carbonated drinks (has been drinking Sprite)
-Encourage use of IS
-OOB into chair/Ambulate
-Home in 1-2 days
Assessment / Plan
-
- s/p CABG x 5 (HOLM-LAD, KWYD-[id number], [id number]); Mitral valve repair [30 mm band annuloplasty]; Left atrial appendage exclusion [35 mm device] by Dr. Carr on 01/19/25, pod #4
- Intraop DELGADO: left ventricular ejection fraction preoperatively was approximately 45% he had at least severe mitral valve insufficiency that was worse when his PA pressures everett. After surgery his EF was 55% with no significant regional wall motion
abnormalities and the mitral valve was repaired using a band annuloplasty. Given that his left atrium was not dilated and his heart was rotated rightward it was quite difficult to visualize the anterior leaflet of mitral valve and so full ring was
not placed. He had a mild degree of aortic valve deficiency starting the case which was the same postoperatively. At the conclusion, his mitral valve insufficiency went from torrential to mild at best. His PA pressures also normalized to the 30s
and 40s at the conclusion of the case. The mean gradient across the mitral valve was 2 mmHg, there is no systolic anterior motion of the leaflets. His left atrial appendage was also verified be free of any thrombus or debris preoperatively and found
to be totally occlusive postoperatively with a 35mm clip.
- Recent STEMI with cardiovascular collapse, s/p emergency stenting to the mid RCA
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
- Hydronephrosis
- Hyperlipidemia
- Hypertension
- Gout-
- Acute on chronic HFrEF (EF 40% pre-op TTE)>HFimpEF (EF 55% post-op)
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
- Functional mitral valve sufficiency, type IIIb
- Acute postop blood loss anemia- s/p 2 pRBCs
- Acute postop atelectasis
- Acute postop hypovolemia with subsequent hypervolemia
- Acute postop hyponatremia
- Junctional accelerated rhythm 01/20/25
- 5 beat NSVT 01/20/25
- Acute postop hypercapnia
Discussed patient care with: Cardiology, Nursing, Respiratory Therapy, Pharmacy and Care Team
Subjective
-
Date of Service: January 23, 2025
Pt c/o mild incisional pain, otherwise feels well
Objective Data
-
PT 17.3 Sec (11.4-14.6) H 01/19/25 12:25
INR 1.36 01/19/25 12:25
APTT 31.0 Sec (23.4-35.0) 01/19/25 12:25
Vital Signs
Vital Signs
Temp Pulse Resp BP Pulse Ox
98.3 F 79 18 101/64 96
01/23/25 00:39 01/23/25 01:00 01/23/25 00:39 01/23/25 00:39 01/23/25 00:39
CT Intake/Output/Weight
01/22/25 01/22/25 01/23/25
06:59 18:59 06:59
Intake Total 430.8 / 851.5 10.6 / 10.6
Output Total 1850 / 3110 2074 / 2374 300 / 2375
Balance -1419.2 / -2258.5 -2064.4 / -2364.4 -300 / -2364.4
SaO2: 96 (RA)
Physical Exam
-
General: Awake, Oriented and AOx3
Cardiovascular: Regular rate & rhythm, No Murmurs, No Rub and No Gallop
Respiratory: Decreased Breath Sounds (at bases, otherwise clear)
Sternum: Stable
Incision: Clean, Dry, Intact and Dressing Intact
Extremities: Other (+trace edema)
Data Reviewed
-
Lab Results: Results Reviewed
Medications: Active Meds Reviewed
Chest X-Ray: Report Reviewed and Image Reviewed
ECG: Report Reviewed and Image Reviewed
--- NOTE | 2025-01-23 04:00 | PTCARENOTE ---
No acute changes in assessment. Pt SR on the tele monitor. HR 70-80s. BP stable. 97% on RA. Voiding as needed in urinal. No c/o pain at this time. Labs drawn and sent. Call reza within reach.
[2025-01-23 04:01] LABS: Hematocrit 24.3 % (39.0-52.0); Hemoglobin 7.7 g/dL (13.0-18.0); Mean Corp Hgb Conc. 31.7 g/dL (33.0-37.0); Mean Corpuscular Volume 83.5 fL (80.0-94.0); Platelet Count 302 10^3/uL (130-400); Red Cell Dist. Width 15.8 % (11.5-14.5)
[2025-01-23 04:18] LABS: Blood Urea Nitrogen 18 mg/dl (9-20); Calcium 7.9 mg/dl (8.4-10.2); Carbon Dioxide 27 mmol/L (22-30); Chloride 102 mmol/L (98-107); Estimated Creatinine Clearance 73 ml/min; Glucose 91 mg/dl (70-99); Magnesium 2.3 mg/dl (1.6-2.3); Potassium 3.8 mmol/L (3.5-5.1); Sodium 132 mmol/L (135-145); eGFR > 60.00
[2025-01-23] MEDS: TYLENOL 975 MG PO ×2 (06:19→22:29)
[2025-01-23] MEDS: KCL 40 MEQ PO (06:20)
[2025-01-23] MEDS: BACTROBAN 2% OINTMENT 1 APPLIC NASAL (09:01)
[2025-01-23] MEDS: LASIX 40 MG IV ×2 (09:01→18:40)
[2025-01-23] MEDS: SENOKOT 8.6 MG PO ×2 (09:02→20:37)
[2025-01-23] MEDS: LOW STRENGTH ASPIRIN 81 MG PO (09:02)
[2025-01-23] MEDS: PROTONIX 40 MG PO (09:02)
[2025-01-23] MEDS: PLAVIX 75 MG PO (09:02)
[2025-01-23] MEDS: TOPROL XL 12.5 MG PO ×2 (09:03→09:06)
[2025-01-23] MEDS: MAGNESIUM OXIDE 400 MG PO ×2 (09:03→20:37)
[2025-01-23] MEDS: VITAMIN C 500 MG PO (09:03)
[2025-01-23] MEDS: MUCINEX 600 MG PO ×2 (09:03→20:37)
[2025-01-23] MEDS: NEURONTIN 100 MG PO ×3 (09:03→22:30)
[2025-01-23] MEDS: FEOSOL 325 MG PO (09:03)
[2025-01-23] MEDS: KCL 20 MEQ PO ×2 (09:29→20:36)
[2025-01-23] MEDS: NSS IV (13:08)
[2025-01-23] MEDS: TYLENOL PO (18:45)
--- NOTE | 2025-01-23 20:58 | PTCARENOTE ---
Assumed care of pt from kenny RN. Walking rounds completed. Pt AAOx3. Appropriate. SR on the tele monitor. HR 80s. HR increases slightly w/ activity. BP stable. Palpable pulses throughout. Trace LLE edema. Pt POX 96% on RA. Occasional cough. Lung
sounds slightly diminished throughout. Deep breathing and IS encouraged. Abdomen soft. +BSx4. Denies belly pain/nausea. Voiding as needed in urinal w/o issue. Right IJ cordis and PIV x1 intact. All surgical sites stable. Pt minimal assist OOB. Big
loop around [place] x1. Denies pain at this time. Call reza within reach.
[2025-01-23] MEDS: LIPITOR 80 MG PO (22:30)
[2025-01-24 00:07] VITALS: BP 93/58
--- NOTE | 2025-01-24 00:10 | PTCARENOTE ---
No acute changes in assessment. Pt SR on the tele monitor. HR 80s. BP stable. 99% on RA. Voiding as needed in urinal. No c/o pain at this time. Call reza within reach.
[2025-01-24 03:30] VITALS: BP 97/69
--- NOTE | 2025-01-24 03:36 | W.PN.CT ---
Today's Communication / Plan
-
-Plan:
-No major issues overnight. Hemodynamically and neurologically intact
-Weaned off Dobutamine on 01/22/25
-Amiodarone remains on hold d/t postop junctional rhythm
-No further junctional rhythm, NSR x 3 days, increased HR with ambulation, tolerating resumption of low dose Toprol xL on 01/22
-D/C cordis
-D/C temporary PW
-H/h of 7.7/24.3, improved to 8.4/25.9 with diuresis
-Monitor hyponatremia of 132, cont. diuresis and fluid restriction
-Mg 2.4, placed mag oxide on hold
-Will replete k of 3.9
-Hypercapnia has resolved after receiving Diamox, advised to minimize carbonated drinks (has been drinking Sprite)
-Encourage use of IS
-2-view cxr from yesterday looks good
-OOB into chair/Ambulate
-Home today
Assessment / Plan
-
- s/p CABG x 5 (HOLM-LAD, [id number]-[id number], [id number]); Mitral valve repair [30 mm band annuloplasty]; Left atrial appendage exclusion [35 mm device] by Dr. Carr on 01/19/25, pod #5
- Intraop DELGADO: left ventricular ejection fraction preoperatively was approximately 45% he had at least severe mitral valve insufficiency that was worse when his PA pressures everett. After surgery his EF was 55% with no significant regional wall motion
abnormalities and the mitral valve was repaired using a band annuloplasty. Given that his left atrium was not dilated and his heart was rotated rightward it was quite difficult to visualize the anterior leaflet of mitral valve and so full ring was
not placed. He had a mild degree of aortic valve deficiency starting the case which was the same postoperatively. At the conclusion, his mitral valve insufficiency went from torrential to mild at best. His PA pressures also normalized to the 30s
and 40s at the conclusion of the case. The mean gradient across the mitral valve was 2 mmHg, there is no systolic anterior motion of the leaflets. His left atrial appendage was also verified be free of any thrombus or debris preoperatively and found
to be totally occlusive postoperatively with a 35mm clip.
- Recent STEMI with cardiovascular collapse, s/p emergency stenting to the mid RCA
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
- Hydronephrosis
- Hyperlipidemia
- Hypertension
- Gout-
- Acute on chronic HFrEF (EF 40% pre-op TTE)>HFimpEF (EF 55% post-op)
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
- Functional mitral valve sufficiency, type IIIb
- Acute postop blood loss anemia- s/p 2 pRBCs
- Acute postop atelectasis
- Acute postop hypovolemia with subsequent hypervolemia
- Acute postop hyponatremia
- Junctional accelerated rhythm 01/20/25
- 5 beat NSVT 01/20/25
- Acute postop hypercapnia
Discussed patient care with: Cardiology, Nursing, Respiratory Therapy, Pharmacy and Care Team
Subjective
-
Date of Service: January 24, 2025
Pt c/o mild incisional pain, otherwise feels well
Objective Data
-
PT 17.3 Sec (11.4-14.6) H 01/19/25 12:25
INR 1.36 01/19/25 12:25
APTT 31.0 Sec (23.4-35.0) 01/19/25 12:25
Vital Signs
Vital Signs
Temp Pulse Resp BP Pulse Ox
98.4 F 75 16 97/69 100
01/24/25 03:30 01/24/25 03:30 01/24/25 03:30 01/24/25 03:30 01/24/25 03:30
CT Intake/Output/Weight
01/23/25 01/23/25 01/24/25
06:59 18:59 06:59
Output Total 650 / 2725 2200 / 2750 550 / 2750
Balance -650 / -2714.4 -2200 / -2750 -550 / -2750
SaO2: 100 (RA)
Physical Exam
-
General: Awake, Oriented and AOx3
Cardiovascular: Regular rate & rhythm, No Murmurs, No Rub and No Gallop
Respiratory: Decreased Breath Sounds (at bases, otherwise clear)
Sternum: Stable
Incision: Clean, Dry, Intact and Dressing Intact
Extremities: Other (+trace edema)
Data Reviewed
-
Lab Results: Results Reviewed
Medications: Active Meds Reviewed
Chest X-Ray: Report Reviewed and Image Reviewed
ECG: Report Reviewed and Image Reviewed
[2025-01-24 03:54] LABS: Hematocrit 25.9 % (39.0-52.0); Hemoglobin 8.4 g/dL (13.0-18.0); Mean Corp Hgb Conc. 32.4 g/dL (33.0-37.0); Mean Corpuscular Volume 84.9 fL (80.0-94.0); Platelet Count 339 10^3/uL (130-400); Red Cell Dist. Width 16.5 % (11.5-14.5)
--- NOTE | 2025-01-24 03:57 | PTCARENOTE ---
No acute changes in assessment. Pt SR on the tele monitor. HR 70-80s. BP stable. 99-100% on RA. Voiding as needed in urinal. No c/o pain at this time. Labs drawn and sent. Ayden tipton Call reza within reach.
[2025-01-24 04:06] LABS: Blood Urea Nitrogen 18 mg/dl (9-20); Calcium 8.3 mg/dl (8.4-10.2); Carbon Dioxide 27 mmol/L (22-30); Chloride 102 mmol/L (98-107); Estimated Creatinine Clearance 73 ml/min; Glucose 99 mg/dl (70-99); Magnesium 2.4 mg/dl (1.6-2.3); Potassium 3.9 mmol/L (3.5-5.1); Sodium 132 mmol/L (135-145); eGFR > 60.00
[2025-01-24] MEDS: KCL 40 MEQ PO ×2 (06:03→09:48)
[2025-01-24] MEDS: TYLENOL 975 MG PO (06:03)
[2025-01-24] MEDS: CALCIUM GLUCONATE 130 MG IV (06:03)
[2025-01-24 06:16] VITALS: BMI 27.6
[2025-01-24 08:05] VITALS: BP 97/65
[2025-01-24] MEDS: TOPROL XL 12.5 MG PO (08:15)
[2025-01-24] MEDS: LOW STRENGTH ASPIRIN 81 MG PO (08:16)
[2025-01-24] MEDS: VITAMIN C 500 MG PO (08:16)
[2025-01-24] MEDS: FEOSOL 325 MG PO (08:16)
[2025-01-24] MEDS: MUCINEX 600 MG PO (08:16)
[2025-01-24] MEDS: LASIX 40 MG IV (08:16)
[2025-01-24] MEDS: PLAVIX 75 MG PO (08:16)
[2025-01-24] MEDS: NEURONTIN 100 MG PO (08:16)
[2025-01-24] MEDS: PROTONIX 40 MG PO (08:16)
[2025-01-24] MEDS: SENOKOT PO (08:17)
--- NOTE | 2025-01-24 08:51 | W.DCSUMMARY ---
Discharge Summary
Discharge Data
Date of Admission: 01/19/25
Date of Discharge: 01/24/25
Total time spent discharging patient (in min): 45
-
Pending Results: No
Hospital Course
Primary care physician:
Dr. Mathew Basilio
Outpatient medical center manager:
Dr. Childs
Inpatient consultants:
DCA, manager portable
Procedures:
1. CABG x 5 (HOLM-LAD, CSQI-Vycp-CU, QDTG-NMLL-QBMD), Mitral valve repair [30 mm band annuloplasty], Left atrial appendage exclusion [35 mm device] on 01/[address] Carr
Primary Diagnosis:
1. Ischemic cardiomyopathy, multivessel coronary artery disease
Secondary Diagnoses:
- Recent STEMI with cardiovascular collapse, s/p emergency stenting to the mid RCA
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
- Hydronephrosis
- Hyperlipidemia
- Hypertension
- Gout
- Acute on chronic HFrEF (EF 40% pre-op TTE)>HFimpEF (EF 55% post-op)
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
- Functional mitral valve sufficiency, type IIIb
- Acute postop blood loss anemia- s/p 2 pRBCs
- Acute postop atelectasis
- Acute postop hypovolemia with subsequent hypervolemia
- Acute postop hyponatremia
- Junctional accelerated rhythm 01/20/25
- 5 beat NSVT 01/20/25
- Acute postop hypercapnia
HPI: 59-year-old male who suffered a STEMI in [place] and underwent emergency stenting to the mid RCA. He was found to have multivessel coronary artery disease and was initially booked for surgery there and he was discovered to have severe
mitral valve insufficiency. He was actually on the operating room table and the procedure was aborted given this new finding. He has since recovered somewhat from that and sought out a second surgical opinion as he lives up here in [place]. He
met with Dr. Carr and presented electively on 01/19 for surgery.
Hospital course: Patient was electively admitted for surgery with Dr. Carr on 01/19. Postoperatively he returned to the CVICU for recovery. He returned to CVICU on dobutamine, Levophed, Precedex, and insulin infusions. Patient was weaned off
Precedex and was extubated later that evening. Hemoglobin was noted to be low and was given 2 units of packed red blood cells along with 750 mL of lactated Ringer's. On 01/20 postoperative day 1, chest tube was removed and dobutamine was weaned
slowly. Patient was diuresed with 40 mg of IV Lasix and remained on Levophed low-dose. On 01/21 postoperative day 2, Levophed was weaned off and dobutamine was weaned to 1 mcg/kg/min. Morning EKG revealed a junctional rhythm so amiodarone and
beta-blockers were held. Due to the junctional rhythm epicardial wires remained and mediastinal chest tubes were removed. He was diuresed with 20 mg of IV Lasix and [facility] and Mitchell was removed. Later in the evening patient was redosed with Lasix.
On 01/22 postoperative day 3, patient was weaned off dobutamine. He was diuresed with Lasix twice daily and diuresed well. Patient ambulated in the hallways without issue. On 01/23 postoperative day 4, patient was again diuresed with Lasix twice
daily and ambulated in the hallway. He was started on low-dose beta-blockers which he tolerated well. Two-view chest x-ray remained stable. On 01/24 postoperative day 5, patient continued to do well and received 40 mg of IV Lasix. He continued
to ambulate in the hallways and did stairs with physical therapy. He was deemed stable for discharge home and epicardial wires were cut at the level of the skin.
Home medication changes:
see below
Discharge Plan
-
Patient Disposition: Home (Routine Discharge)
Discharge Diagnosis/Procedures: Mitral Valve repair, CABG x 5, left atrial appendage clip (01/19)
Condition: Good
Diet: Low Cholesterol, Low Sodium and Restrict fluids to 64 oz
Activity: No strenuous activity
Driving Restrictions: Not until seen by your Dr
Bathing Restrictions: OK to Shower
Blood Work: BMP in 1 week
Other Services: Cardiac Rehab
Specialty Instructions: Weigh Daily- Call MD for wt gain/loss 3 lbs overnight/5 lbs in 1 week
Activity Restrictions/Additional Instructions:
ACTIVITY:
-No strenuous activity: no heavy lifting, pushing, pulling anything over 15 pounds for one month
-continue to use stairs as tolerated
DRIVING RESTRICTIONS:
-No driving for one month or until approved by your surgeon
WOUND CARE:
-Shower daily. Use soap & water.
-No lotions, creams or powders on incision area.
DIET:
-continue a low fat/low cholesterol diet.
-IF you are diabetic, continue carb controlled diet.
CARDIAC REHAB:
-Please make appointment to start in 5-6 weeks with your local hospital program. (See Cardiac Rehabilitation Discharge Booklet).
SPECIALTY INSTRUCTIONS:
-Weigh yourself daily. Call your physician for any weight gain/loss of 3 lbs overnight or 5 lbs in one week.
-REPORT any clicking noise or uneven appearance of your sternum to your surgeon immediately.
-If you smoke, you are instructed to quit. The [place] smoking hotline phone number is [phone]
Referrals:
CT Transitional Care Nurse [Outside]
Referral Note: The Cardiothoracic Transitional Care Nurse will call you to set up a visit in 1-2 days.
[facility] [Outside] - 03/08/25 1:00 pm
Referral Note: Cardiac Rehab Orientation appointment is on March 08 at 1pm.
The Cardiac Rehab gym is located on the first floor of the [facility].
Mathew Basilio MD [Family Provider, Internal Medicine]
Carmel Garcia PA-C [Specified Professional Personl, Cardiology] - 02/28/25 1:00 pm
Jose Carr MD [Active, Cardiac Surgery] - 02/21/25 2:00 pm
Prescriptions:
New
clopidogrel 75 mg Tablet
75 mg PO DAILY Qty: 30 0RF
metoprolol succinate 25 mg Tablet Extended Release 24 Hr
12.5 mg PO DAILY Qty: 30 1RF
oxycodone 5 mg Tablet
2.5 mg PO Q4HPRN PRN (Reason: severe pain) Qty: 10 0RF
Continued
atorvastatin 80 mg Tablet
80 mg PO HS
spironolactone 25 mg Tablet
25 mg PO DAILY
pantoprazole 40 mg Tablet,Delayed Release (Dr/Ec)
40 mg PO BID
aspirin 81 mg Tablet,Delayed Release (Dr/Ec)
81 mg PO DAILY
Discontinued
ticagrelor 90 mg Tablet
90 mg PO Q12H
Discharge Orders:
Discharge Patient (As Directed); Ordered 01/24/25
Ordered By: Ariella Moyer
Care Plan Goals
Care Plan Goals:
Problem: Readiness for enhanced knowledge related to diagnosis and treatment plan
Goal: Understand your diagnosis and treatment plan needs, including medications if applicable.
Instructions: Know your diagnosis, underlying causes and treatment plan options, including medications if applicable. Consult with your health care team to learn about your diagnosis and treatment plan, including medications if applicable.
Discharge Date and Time
Print Language: YEMENI
--- NOTE | 2025-01-24 09:41 | PTCARENOTE ---
Patient received from promotion manager RN; AAOx3, responds spontaneously and follows commands; VSS; NSR on monitor; Epicardial AV wires present and insulated; Trace LLE edema; +2 radial and DP pulses; Clear lung sounds; Clear, thick sputum; SpO2 95-97%
on RA; Patient passing gas and refusing scheduled laxatives this AM; Patient urinating clear, yellow urine; Surgical incisions intact; PIVx1; See nursing documentation for further information
[2025-01-24 10:09] VITALS: BP 110/72
[2025-01-24 10:19] VITALS: BP 110/74
[2025-01-24 10:22] VITALS: BP 110/72; BP 110/74; PULSE 90; O2SAT 100; O2SAT 97
[2025-01-24] MEDS: NSS IV (10:50)
--- NOTE | 2025-01-24 13:04 | PTCARENOTE ---
Patient discharged home - states full understanding of discharge instructions and states full understanding at this time; Patient belongings taken with patient and spouse; PIVx1 and telemetry pack removed; CHG shower completed; Stairs completed;
Patient taken by wheelchair by volunteer to spouse's car
== END 2025-01-24 12:42 | disposition home or self-care (01) | DRG 219 ==
LOC: CVICU 05:17
PROVIDERS: Anesthesiology; Clinical Nurse Specialist Acute Care; Physician Assistant Medical; ADMITTING PHYSICIAN Thoracic Surgery (Cardiothoracic Vascular Surgery); CONSULT PHYSICIAN Internal Medicine; CONSULT PHYSICIAN Internal Medicine Cardiovascular Disease; FAMILY PHYSICIAN Internal Medicine; REFERRING PHYSICIAN Internal Medicine Cardiovascular Disease
PROC: 02100Z9 Bypass Coronary Artery, One Artery from Left Internal Mammary, Open Approach (ICD-10-PCS; 2025-01-19)
PROC: 02L70CK Occlusion of Left Atrial Appendage with Extraluminal Device, Open Approach (ICD-10-PCS; 2025-01-19)
PROC: 5A1221Z Performance of Cardiac Output, Continuous (ICD-10-PCS; 2025-01-19)
PROC: 021309W Bypass Coronary Artery, Four or More Arteries from Aorta with Autologous Venous Tissue, Open Approach (ICD-10-PCS; 2025-01-19)
PROC: 30233N1 Transfusion of Nonautologous Red Blood Cells into Peripheral Vein, Percutaneous Approach (ICD-10-PCS; 2025-01-19)
PROC: 02UG0JZ Supplement Mitral Valve with Synthetic Substitute, Open Approach (ICD-10-PCS; 2025-01-19)
PROC: B24BZZ4 Ultrasonography of Heart with Aorta, Transesophageal (ICD-10-PCS; 2025-01-19)
PROC: 06BP4ZZ Excision of Right Saphenous Vein, Percutaneous Endoscopic Approach (ICD-10-PCS; 2025-01-19)
DX: I25.10 Atherosclerotic heart disease of native coronary artery without angina pectoris (principal); I50.23 Acute on chronic systolic (congestive) heart failure; Q24.5 Malformation of coronary vessels; D62 Acute posthemorrhagic anemia; J98.11 Atelectasis; E87.1 Hypo-osmolality and hyponatremia; I47.20 Ventricular tachycardia, unspecified; I34.0 Nonrheumatic mitral (valve) insufficiency; I25.5 Ischemic cardiomyopathy; E86.1 Hypovolemia; R06.89 Other abnormalities of breathing; E78.5 Hyperlipidemia, unspecified; I11.0 Hypertensive heart disease with heart failure; M10.9 Gout, unspecified; I27.20 Pulmonary hypertension, unspecified; I25.2 Old myocardial infarction; Z95.5 Presence of coronary angioplasty implant and graft; Z87.891 Personal history of nicotine dependence; Z87.442 Personal history of urinary calculi
CPT/HCPCS: 36415; 71045; 71046; 80048; 80053; 81003; 81015; 82248; 82330; 82565; 82805; 82810; 82947; 82962; 83036; 83735; 84132; 84302; 84520; 85014; 85018; 85025; 85027; 85049; 85610; 85730; 86850; 86900; 86901; 86920; 87070; 93005; 93308; 93312; 93320; 93321; 93325; 93880; 94002; J2916; P9016; Q9950

== ENCOUNTER → 2025-01-31 08:29 | Outpatient (REF) | payer BC, SELFPAY ==
[2025-01-31 10:06] LABS: Blood Urea Nitrogen 15 mg/dl (9-20); Calcium 9.3 mg/dl (8.4-10.2); Carbon Dioxide 29 mmol/L (22-30); Chloride 103 mmol/L (98-107); Glucose 93 mg/dl (70-99); Potassium 4.8 mmol/L (3.5-5.1); Sodium 136 mmol/L (135-145); eGFR > 60.00
== END ==
LOC: REG 08:29
PROVIDERS: ATTENDING PHYSICIAN Thoracic Surgery (Cardiothoracic Vascular Surgery); FAMILY PHYSICIAN Internal Medicine; REFERRING PHYSICIAN Internal Medicine Cardiovascular Disease
DX: E87.1 Hypo-osmolality and hyponatremia (principal)
CPT/HCPCS: 36415; 80048